=== PATIENT | female | born 1965 | race Hispanic/Latino ===

== ENCOUNTER 2016-09-03 13:32 | Emergency (ER) | payer MEDICAID ==
[2016-09-03 13:32] VITALS: BMI 40.1
[2016-09-03 13:54] VITALS: BP 118/82; PULSE 90; RESP 20; TEMP 97.9; O2SAT 97
[2016-09-03] MEDS ORDERED: Sodium Chloride 0.9% 1,000 ML IV ONE (14:19)
--- NOTE | 2016-09-03 14:23 | C.PDOC ---
History Of Present Illness 51 yr old female with PMHx of diabetes, arthritis and COPD, presents to the ER for SOB and wheezing for a while. Patient states she smokes. Patient reports she has been seen by her PMD, is on antibiotics, steroids and is taking breathing treatments but is still wheezing. Patient states she is only able to walk few feet and feels SOB. Patient denies fever, chills, chest pain, palpitations, nausea, vomiting, abdominal pain, diarrhea, headache, weakness or numbness. Time Seen by Provider: 09/03/16 14:13 Chief Complaint (Nursing): Shortness Of Breath History Per: Patient History/Exam Limitations: no limitations Onset/Duration Of Symptoms: Days (Few) Past Medical History Reviewed: Historical Data, Nursing Documentation, Vital Signs Vital Signs: Last Vital Signs Temp 97.9 F 09/03/16 13:51 Pulse 90 09/03/16 13:51 Resp 20 09/03/16 14:55 BP 118/82 09/03/16 13:51 Pulse Ox 97 09/03/16 16:16 - Medical History PMH: Anxiety, Arthritis, Asthma, Bipolar Disorder, COPD, Diabetes, Diverticulitis, HTN Surgical History: Tonsillectomy - [facility] Procedures INJECT/INFUSE NEC (02/16/15) Family History: States: No Known Family Hx - Social History Hx Tobacco Use: Yes Hx Alcohol Use: No Hx Substance Use: Yes - Immunization History Hx Tetanus Toxoid Vaccination: No Hx Influenza Vaccination: No Hx Pneumococcal Vaccination: No Review Of Systems Except As Marked, All Systems Reviewed And Found Negative. Constitutional: Negative for: Fever, Chills Cardiovascular: Negative for: Chest Pain, Palpitations Respiratory: Positive for: Shortness of Breath, Wheezing Gastrointestinal: Negative for: Nausea, Vomiting, Abdominal Pain, Diarrhea Neurological: Negative for: Weakness, Numbness, Headache Physical Exam - Physical Exam Appears: Well, Non-toxic, No Acute Distress Skin: Warm, Dry, No Rash Head: Atraumatic, Normacephalic Oral Mucosa: Moist Throat: Normal, No Erythema, No Exudate, No Drooling Neck: Normal, Normal ROM, Supple Chest: Symmetrical, No Tenderness Cardiovascular: Rhythm Regular, No Murmur Respiratory: No Rales, Rhonchi, Wheezing (Bilateral) Gastrointestinal/Abdominal: Normal Exam, Soft, No Tenderness, No Guarding, No Rebound Extremity: Normal ROM, No Swelling Neurological/Psych: Oriented x3, Normal Speech, Cerebellar Signs ED Course And Treatment - Laboratory Results Result Diagrams: 09/03/16 15:01 09/03/16 15:01 Lab Interpretation: Abnormal O2 Sat by Pulse Oximetry: 97 Pulse Ox Interpretation: Normal - Other Rad CXR X-Ray: Viewed By Me, Read By Radiologist Interpretation: HISTORY: Shortness of breath. COMPARISON: No prior. TECHNIQUE: Chest PA and lateral. FINDINGS: LUNGS: The lungs are well inflated and clear. PLEURA: No significant pleural effusion identified. No pneumothorax apparent. CARDIOVASCULAR: Normal. OSSEOUS STRUCTURES: No significant abnormalities. VISUALIZED UPPER ABDOMEN: Normal. OTHER FINDINGS: None. IMPRESSION: No active pulmonary disease. Progress Note: Treated with solumedrol 125 mg IV and duoneb x 3. Patient ambulating without difficulty and eating cupcake and candy at bedside. Treated with regular insulin 8 units SQ. patient and advised to follow up with her PMD for further evaluation Reassessment Condition: Improved Medical Decision Making Medical Decision Making: PLAN: * CXR * CBC * Urinalysis * Albuterol IH * Tylenol PO * Solumedrol IVP Disposition Counseled Patient/Family Regarding: Studies Performed, Diagnosis, Need For Followup - Disposition Referrals: [facility] [Outside] [facility] [Outside] Disposition: HOME/ ROUTINE Disposition Time: 16:30 Condition: IMPROVED Additional Instructions: Take medication as directed Return to ED if any increase symptoms Instructions: Asthma (ED), COPD (Chronic Obstructive Pulmonary Disease) (ED), Reactive Airways Disease (ED), Diabetes Mellitus Type 2 in Adults (ED) - POA Present On Arrival: None - Clinical Impression Clinical Impression: Respiratory tract infection, COPD exacerbation, Acute hyperglycemia - PA / OPTIMIZATION CONSULTANT / Resident Statement MD/DO has reviewed & agrees with the documentation as recorded. - Scribe Statement The provider has reviewed the documentation as recorded by the Joelibjimi Lindsey All medical record entries made by the Joelibjimi were at my direction and personally dictated by me. I have reviewed the chart and agree that the record accurately reflects my personal performance of the history, physical exam, medical decision making, and the department course for this patient. I have also personally directed, reviewed, and agree with the discharge instructions and disposition.
[2016-09-03] MEDS ORDERED: Sodium Chloride 0.9% 1,000 ML ONE (14:35)
[2016-09-03] MEDS: Albuterol-Ipratrop 3 mg / 0.5 (3 ml) UD IH SCH ×2 (14:35→14:52)
--- NOTE | 2016-09-03 14:36 | RAD ---
HISTORY: Shortness of breath COMPARISON: No prior. TECHNIQUE: Chest PA and lateral FINDINGS: LUNGS: The lungs are well inflated and clear. PLEURA: No significant pleural effusion identified. No pneumothorax apparent. CARDIOVASCULAR: Normal. OSSEOUS STRUCTURES: No significant abnormalities. VISUALIZED UPPER ABDOMEN: Normal. OTHER FINDINGS: None. IMPRESSION: No active pulmonary disease.
[2016-09-03] MEDS ORDERED: Albuterol-Ipratrop 3 mg / 0.5 (3 ml) UD ONE (14:39)
[2016-09-03 15:05] LABS: BASO # 0.2 K/uL (0.0-0.2); BASO % 1.3 % (0.0-2.0); EOS # 0.2 K/uL (0.0-0.7); EOS % 1.4 % (0.0-4.0); HEMATOCRIT 50.7 % (34.0-47.0); LYMPH # 4.1 K/uL (1.0-4.3); LYMPH % 34.1 % (20.0-40.0); MEAN CELL VOLUME 90.5 fL (81.0-99.0); MEAN CORPUSCULAR HEMOGLOBIN 29.1 pg (27.0-31.0); MEAN CORPUSCULAR HGB CONC 32.1 g/dL (33.0-37.0); MEAN PLATELET VOLUME 8.9 fL (7.2-11.7); MONO # 0.6 K/uL (0.0-0.8); MONO % 4.7 % (0.0-10.0); RED CELL DISTRIBUTION WIDTH 13.4 % (11.5-14.5); WHITE BLOOD COUNT 11.9 K/uL (4.8-10.8)
[2016-09-03 15:11] LABS: CHLORIDE 97 mmol/L (98-107)
[2016-09-03 15:12] LABS: SODIUM 134 mmol/L (132-148)
[2016-09-03 15:15] LABS: ALKALINE PHOSPHATASE 130 U/L (38-126); ALT/SGPT 23 U/L (9-52); AST/SGOT 32 U/L (14-36); BILIRUBIN,TOTAL 0.7 mg/dL (0.2-1.3); BLOOD UREA NITROGEN 16 mg/dL (7-17); CARBON DIOXIDE 22 mmol/L (22-30); GFR AFRICAN-AMERICAN > 60; TOTAL PROTEIN 7.8 g/dL (6.3-8.3)
[2016-09-03 15:19] LABS: POTASSIUM 5.1 mmol/L (3.6-5.2)
[2016-09-03 15:39] LABS: GLUCOSE,RANDOM 488 mg/dL (65-105)
[2016-09-03] MEDS ORDERED: (Novolin R) Insulin Human Regular 100 units/ml vial SC ONE (15:56)
[2016-09-04] MEDS ORDERED: Sodium Chloride 0.9% 1,000 ML ONE (21:37)
[2016-09-04] MEDS ORDERED: Iohexol 240 (50 ml) ONE (22:39)
[2016-09-04] MEDS ORDERED: (Novolin R) Insulin Human Regular 100 units/ml vial ONE (22:41)
[2016-09-04] MEDS ORDERED: Morphine 4 MG/ML VIAL ONE (22:43)
== END 2016-09-03 14:55 | disposition home or self-care (01) ==
LOC: C.ER 13:32
DX: J44.1 Chronic obstructive pulmonary disease with (acute) exacerbation (principal); E11.65 Type 2 diabetes mellitus with hyperglycemia; J98.8 Other specified respiratory disorders; Z72.0 Tobacco use
CPT/HCPCS: 71020; 80053; 85025; 94150; 94640; 96374; 99283; J2930

== ENCOUNTER 2016-09-04 19:58 | Emergency (ER) | payer MEDICAID ==
[2016-09-04 19:58] VITALS: BMI 40.1
[2016-09-04] MEDS ORDERED: Sodium Chloride 0.9% 1,000 ML IV ONE (21:21)
[2016-09-04 21:43] LABS: BASO # 0.2 K/uL (0.0-0.2); BASO % 1.1 % (0.0-2.0); EOS # 0.2 K/uL (0.0-0.7); EOS % 1.3 % (0.0-4.0); HEMATOCRIT 46.5 % (34.0-47.0); LYMPH # 5.2 K/uL (1.0-4.3); LYMPH % 36.3 % (20.0-40.0); MEAN CELL VOLUME 91.5 fL (81.0-99.0); MEAN CORPUSCULAR HEMOGLOBIN 29.5 pg (27.0-31.0); MEAN CORPUSCULAR HGB CONC 32.2 g/dL (33.0-37.0); MEAN PLATELET VOLUME 8.7 fL (7.2-11.7); MONO # 0.6 K/uL (0.0-0.8); MONO % 4.4 % (0.0-10.0); RED CELL DISTRIBUTION WIDTH 13.4 % (11.5-14.5); WHITE BLOOD COUNT 14.3 K/uL (4.8-10.8)
[2016-09-04 22:00] LABS: CHLORIDE 95 mmol/L (98-107)
[2016-09-04 22:01] LABS: POTASSIUM 4.7 mmol/L (3.6-5.2); SODIUM 133 mmol/L (132-148)
[2016-09-04 22:03] LABS: ALB/GLOB RATIO 1.2 (1.0-2.1); ALKALINE PHOSPHATASE 141 U/L (38-126); AST/SGOT 25 U/L (14-36); BILIRUBIN,TOTAL 0.6 mg/dL (0.2-1.3); BLOOD UREA NITROGEN 16 mg/dL (7-17); CARBON DIOXIDE 27 mmol/L (22-30); GFR AFRICAN-AMERICAN > 60; TOTAL PROTEIN 7.2 g/dL (6.3-8.3)
[2016-09-04 22:04] LABS: ALT/SGPT 27 U/L (9-52); CALCIUM 8.6 mg/dl (8.6-10.4); GLUCOSE,RANDOM 529 mg/dL (65-105)
[2016-09-04] MEDS ORDERED: Iohexol 240 (50 ml) PO STA (22:30)
[2016-09-04] MEDS ORDERED: (Novolin R) Insulin Human Regular 100 units/ml vial IV STA (22:32)
[2016-09-05 00:04] LABS: RBC URINE 9 /hpf (0-3); URINE BACTERIA RARE (<OCC); URINE BILIRUBIN NEGATIVE (NEGATIVE); URINE COLOR Straw (YELLOW); URINE GLUCOSE (UA) 3+ mg/dL (Normal); URINE KETONE NEGATIVE (NEGATIVE); URINE LEUKOCYTE ESTERASE NEG Leu/uL (Negative); URINE PROTEIN NEGATIVE (NEGATIVE); URINE UROBILINOGEN NORMAL mg/dL (0.2-1.0); WBC URINE 1 /hpf (0-5)
[2016-09-05 00:05] LABS: URINE BLOOD 1+ (NEGATIVE)
--- NOTE | 2016-09-05 00:37 | C.PDOC ---
Time Seen by Provider: 09/04/16 20:53 Chief Complaint (Nursing): Abdominal Pain History Per: Patient Onset/Duration Of Symptoms: Hrs (today) Current Symptoms Are (Timing): Still Present Severity: Moderate Location Of Pain/Discomfort: Diffuse Radiation Of Pain To:: None Quality Of Discomfort: Unable To Describe, "Pain" Associated Symptoms: Nausea, Vomiting Exacerbating Factors: Food Alleviating Factors: None Last Bowel Movement: Today Additional History Per: Prior Records Last Menstral Period: Menopause Past Medical History Reviewed: Historical Data, Nursing Documentation, Vital Signs Vital Signs: Last Vital Signs Temp 97.7 F 09/04/16 20:37 Pulse 106 H 09/04/16 20:37 Resp 20 09/04/16 20:37 BP 139/72 09/04/16 20:37 Pulse Ox 97 09/05/16 00:37 - Medical History PMH: Anxiety, Arthritis, Asthma, Bipolar Disorder, COPD, Diabetes, Diverticulitis, HTN Surgical History: Tonsillectomy - [facility] Procedures INJECT/INFUSE NEC (02/16/15) Family History: States: Unknown Family Hx - Social History Hx Tobacco Use: Yes Hx Alcohol Use: No Hx Substance Use: Yes - Immunization History Hx Tetanus Toxoid Vaccination: No Hx Influenza Vaccination: No Hx Pneumococcal Vaccination: No Review Of Systems Except As Marked, All Systems Reviewed And Found Negative. Constitutional: Negative for: Fever, Weakness Cardiovascular: Negative for: Chest Pain Respiratory: Negative for: Shortness of Breath Gastrointestinal: Positive for: Abdominal Pain. Negative for: Diarrhea, Melena , Hematochezia, Hematemesis Genitourinary: Negative for: Dysuria Musculoskeletal: Negative for: Neck Pain, Back Pain Neurological: Negative for: Weakness, Numbness, Seizures, Altered Mental Status Physical Exam - Physical Exam Appears: Non-toxic, No Acute Distress Skin: Normal Color, Warm, Dry, No Rash Head: Atraumatic, Normacephalic Eye(s): bilateral: PERRL, EOMI Neck: Normal ROM, Supple Cardiovascular: Rhythm Regular Respiratory: Normal Breath Sounds, No Accessory Muscle Use Gastrointestinal/Abdominal: Soft, Tenderness (nonspecific) Extremity: Normal ROM Neurological/Psych: Oriented x3, Normal Motor, Normal Sensation ED Course And Treatment - Laboratory Results Result Diagrams: 09/04/16 21:41 09/04/16 21:41 Lab Interpretation: Abnormal Interpretation Of Abnormal: Hyperglycemia. O2 Sat by Pulse Oximetry: 97 Pulse Ox Interpretation: Normal Disposition - Disposition Disposition Time: 00:50 Condition: FAIR - Clinical Impression Clinical Impression: Abdominal pain, Uncontrolled diabetes mellitus with hyperglycemia Physician Patient Turnover Patient Signed Over To: Matty Shaver Handoff Comments: to f/up CT abdomen/pelvis and reassess pt.
[2016-09-05 02:47] VITALS: BP 130/75; PULSE 82; RESP 18; TEMP 98.4; O2SAT 98
--- NOTE | 2016-09-05 09:24 | CT ---
PROCEDURE: CT Abdomen and pelvis dated 09/05/2016 HISTORY: abd pain, Vomiting. on Metformin. COMPARISON: Comparison made with prior study dated 07/18/2013 TECHNIQUE: Contiguous axial images of the abdomen and pelvis. Oral contrast was administered. No IV contrast given. Coronal and Sagittal reformats generated. Radiation dose: Total exam DLP = 1117.88 mGy-cm. This CT exam was performed using one or more of the following dose reduction techniques: Automated exposure control, adjustment of the mA and/or kV according to patient size, and/or use of iterative reconstruction technique. FINDINGS: LOWER THORAX: No basilar infiltrate, effusion or pneumothorax Tiny hiatal hernia. LIVER: The liver is enlarged measuring nearly 24 cm in CC dimension. No obvious hepatic mass collection or calcification. GALLBLADDER AND BILE DUCTS: . Gallbladder is physiologically distended. Re- demonstrated are multiple intraluminal gallbladder calculi. PANCREAS: The pancreas is slightly atrophic and fatty replaced. No obvious pancreatic mass collection or calcification. No significant pancreatic ductal dilatation. SPLEEN: Unremarkable. No splenomegaly. ADRENALS: No adrenal lesions. KIDNEYS AND URETERS: Kidneys exhibit symmetric size. No evidence of nephrolithiasis or hydronephrosis. BLADDER: Urinary bladder is incompletely distended which presumably accounts for thick-walled appearance. Possibility of a cystitis not excluded. REPRODUCTIVE: The uterus and adnexal structures appear unremarkable. . APPENDIX: Normal-appearing appendix best seen on coronal series 601 image number [id number]. No periappendiceal inflammatory changes. BOWEL: Evaluation of the bowel is somewhat limited due to incomplete opacification. The stomach is underdistended which presumably accounts slight thick-walled appearance. Visualized loops of small bowel exhibit normal contour and caliber. No evidence of acute mechanical small bowel obstruction. Stool and air seen throughout the large bowel. Few scattered colonic diverticula are present. No radiographic evidence of diverticulitis. No significant mural wall thickening. PERITONEUM: Unremarkable. No fluid collection. No free air. Tiny fat containing umbilical hernia. Tiny fat containing bilateral inguinal hernias left slightly larger than right. LYMPH NODES: Unremarkable. No enlarged lymph nodes. VASCULATURE: Unremarkable. No aortic aneurysm. BONES: Minor multilevel degenerative spondylosis of the lower thoracic and lumbar spine. OTHER FINDINGS: None. IMPRESSION: Findings consistent with cholelithiasis. No evidence suggest acute cholecystitis. Hepatomegaly. Diverticulosis.
== END 2016-09-05 02:47 | disposition home or self-care (01) ==
LOC: C.ER 19:58
DX: K80.20 Calculus of gallbladder without cholecystitis without obstruction (principal); E11.65 Type 2 diabetes mellitus with hyperglycemia
CPT/HCPCS: 74176; 80053; 81001; 82948; 83690; 85025; 96361; 96374; 96375; 99285; J2270; J2765; J7040; Q9966

== ENCOUNTER 2016-09-08 04:28 | Emergency (ER) | payer MEDICAID ==
[2016-09-08 04:29] VITALS: BMI 40.1
[2016-09-08 05:06] VITALS: BP 116/75; PULSE 94; RESP 18; TEMP 98; O2SAT 92
[2016-09-08] MEDS ORDERED: Alum-Mag Hydrox-Simethicone Susp (30 mL) PO STA (05:25)
--- NOTE | 2016-09-08 05:32 | C.PDOC ---
History Of Present Illness 51 year old female presents to the ED with complaints of heart burn, nausea,and vomiting after having a large Easter dinner. Patient was seen for similar complaints on 09/04/16 and had labs and CT scans performed and gallstones were found. She states she has not had any large meals in between her last visit and last night. Patient denies diarrhea, fever, constipation, and any urinary symptoms. Time Seen by Provider: 09/08/16 05:14 Chief Complaint (Nursing): GI Problem History Per: Patient History/Exam Limitations: no limitations Onset/Duration Of Symptoms: Hrs Current Symptoms Are (Timing): Still Present Associated Symptoms: Nausea, Vomiting. denies: Fever, Diarrhea, Constipation, Urinary Symptoms Past Medical History Reviewed: Historical Data, Nursing Documentation, Vital Signs Vital Signs: Last Vital Signs Temp 98.0 F 09/08/16 05:06 Pulse 94 H 09/08/16 05:06 Resp 18 09/08/16 05:06 BP 116/75 09/08/16 05:06 Pulse Ox 92 L 09/08/16 06:50 - Medical History PMH: Anxiety, Arthritis, Asthma, Bipolar Disorder, COPD, Diabetes, Diverticulitis, HTN Surgical History: Tonsillectomy - [facility] Procedures INJECT/INFUSE NEC (02/16/15) Family History: States: Unknown Family Hx - Social History Hx Tobacco Use: Yes Hx Alcohol Use: No Hx Substance Use: Yes - Immunization History Hx Tetanus Toxoid Vaccination: No Hx Influenza Vaccination: Yes Hx Pneumococcal Vaccination: No Review Of Systems Constitutional: Negative for: Fever, Chills, Sweats Cardiovascular: Positive for: Other (heart burn ) Gastrointestinal: Positive for: Nausea, Vomiting. Negative for: Abdominal Pain , Diarrhea Physical Exam - Physical Exam Appears: Non-toxic, No Acute Distress Skin: Warm, Dry Head: Normacephalic Eye(s): bilateral: Normal Inspection, PERRL Chest: Symmetrical Cardiovascular: Rhythm Regular Respiratory: Decreased Breath Sounds, No Accessory Muscle Use, No Wheezing Gastrointestinal/Abdominal: Soft, Tenderness (epigastric tenderness in right and left upper quardrant ), No Distention, No Guarding, No Rebound Back: No CVA Tenderness Extremity: Normal ROM Neurological/Psych: Oriented x3 Gait: Steady ED Course And Treatment O2 Sat by Pulse Oximetry: 92 Progress Note: Pt reports some pain improvement after meds and tolerated PO fluids. Pt will follow up with PMD and advised of better diet control. Return precautions were given Reevaluation Time: 06:48 Reassessment Condition: Improved Disposition Counseled Patient/Family Regarding: Diagnosis, Need For Followup, Rx Given - Disposition Disposition: HOME/ ROUTINE Disposition Time: 06:51 Condition: STABLE Additional Instructions: Continue previously prescribed meds Follow up with your doctor' Return to ER if worse Instructions: Chronic Indigestion (ED) - Clinical Impression Clinical Impression: Dyspepsia, Abdominal pain - Scribe Statement The provider has reviewed the documentation as recorded by the Joelibjimi Bashir All medical record entries made by the Tutu were at my direction and personally dictated by me. I have reviewed the chart and agree that the record accurately reflects my personal performance of the history, physical exam, medical decision making, and the department course for this patient. I have also personally directed, reviewed, and agree with the discharge instructions and disposition.
[2016-09-08] MEDS ORDERED: Alum-Mag Hydrox-Simethicone Susp (30 mL) ONE (05:34)
== END 2016-09-08 06:56 | disposition home or self-care (01) ==
LOC: C.ER 04:28
DX: R10.13 Epigastric pain (principal)
CPT/HCPCS: 82948; 96372; 99283; J1885

== ENCOUNTER 2016-10-17 20:53 | Emergency (ER) | payer MEDICAID ==
[2016-10-17 20:54] VITALS: BMI 40.1
[2016-10-17 21:05] VITALS: BP 131/86; PULSE 105; RESP 20; TEMP 97.9; O2SAT 100
[2016-10-17] MEDS ORDERED: Oxycodone/Acetaminophen 5/325 mg Tab PO STA ×2 (21:06→21:37)
[2016-10-17] MEDS ORDERED: Oxycodone/Acetaminophen 5/325 mg Tab ONE ×2 (21:11→21:41)
--- NOTE | 2016-10-17 21:12 | C.PDOC ---
History Of Present Illness 51 yo female come in for evaluation of Right wrist and lower back pain developed since 7:30 PM after sustained mechanical fall. Pt reports, tripped outside and fell down, trying to break the fall with Right hand. Pt reports, pain is the worse over Right wrist, localized and worse with movement. Otherwise , pt denies head injury, LOC, syncope, dizziness, visual changes, focal deficits , neck pain, CP, SOB, dyspnea, abd. pain, N/V, saddle anesthesia, denies weakness, sensory or vascular deficits to B/L UEs and LE. Ambulate, in severe pain. Time Seen by Provider: 10/17/16 20:58 Chief Complaint (Nursing): Finger,Hand,&Wrist History Per: Patient Onset/Duration Of Symptoms: Sudden Onset Past Medical History Reviewed: Historical Data, Nursing Documentation, Vital Signs Vital Signs: Last Vital Signs Temp 97.9 F 10/17/16 21:02 Pulse 105 H 10/17/16 21:02 Resp 20 10/17/16 21:02 BP 131/86 10/17/16 21:02 Pulse Ox 100 10/17/16 21:15 - Medical History PMH: Anxiety, Arthritis, Asthma, Bipolar Disorder, COPD, Diabetes, Diverticulitis, HTN Denies: Chronic Kidney Disease Surgical History: Tonsillectomy - [facility] Procedures INJECT/INFUSE NEC (02/16/15) Family History: States: Unknown Family Hx - Social History Hx Tobacco Use: Yes Hx Alcohol Use: No Hx Substance Use: Yes - Immunization History Hx Tetanus Toxoid Vaccination: No Hx Influenza Vaccination: Yes Hx Pneumococcal Vaccination: No Review Of Systems Except As Marked, All Systems Reviewed And Found Negative. Eyes: Negative for: Vision Change ENT: Negative for: Ear Discharge, Nose Discharge Cardiovascular: Negative for: Chest Pain, Palpitations, Light Headedness Respiratory: Negative for: Shortness of Breath Gastrointestinal: Negative for: Nausea, Vomiting Genitourinary: Negative for: Incontinence Musculoskeletal: Positive for: Back Pain, Hand Pain (Right wrist). Negative for : Neck Pain Skin: Negative for: Bruising Neurological: Negative for: Weakness, Numbness, Altered Mental Status, Headache , Dizziness Physical Exam - Physical Exam Appears: Well, Non-toxic, No Acute Distress Skin: Normal Color, Warm, Dry Head: Atraumatic, Normacephalic Eye(s): bilateral: PERRL Ear(s): Bilateral: Normal Nose: No Epistaxis, No Deformity, No Tenderness Oral Mucosa: Moist, No Drooling, No Trismus Tongue: Normal Appearing Lips: Normal Appearing Throat: Normal Neck: No Midline Cervical Tenderness, No Paracervical Tenderness, No Step Off Deformity, Supple Chest: Symmetrical, No Deformity, No Tenderness, No Ecchymosis, No Subcutaneous Emphysema Cardiovascular: Rhythm Regular Respiratory: No Decreased Breath Sounds, No Accessory Muscle Use, No Stridor, No Wheezing Gastrointestinal/Abdominal: Soft, No Tenderness Back: No CVA Tenderness, No Vertebral Tenderness, Paraspinal Tenderness (mild Left lumbar paraspinal tenderness.) Extremity: No Normal ROM (of Right wrist due to pain. Remainder exam is normal with FAROM of B/L LEs and LUE.), Tenderness (diffuse Right wrist tenderness with mild palpable deformity. No neurovascular deficits distall to injury. No skin changes.), Capillary Refill (less than 2sec to Right hand) Neurological/Psych: Oriented x3, Normal Speech, Normal Motor, Normal Sensation, Normal Reflexes ED Course And Treatment O2 Sat by Pulse Oximetry: 100 Pulse Ox Interpretation: Normal - Other Rad Right wrist X-Ray: Interpreted by Me, Viewed By Me Interpretation: (+)angulated distal radial fx pelvis w/left hip X-Ray: Interpreted by Me, Viewed By Me Interpretation: (-) acute fx or dislocation L-spine xray X-Ray: Interpreted by Me, Viewed By Me Interpretation: (-) acute fx or sublux Progress Note: On re-evaluation, pt is afebrile, hemodynamicaly stable. Non- toxic. AMbulatory in Ed with stable gait. head: AT/NC. neck: (-) midline tenderness. back: (-) midline tenderness. RUE: exam c/w wrist contusion, mild deformity noted, no neurovascular deficits. neurologicaly intact. xray review and c/w Right distal radial fx with mild angulation. Splint/sling applied. Pt reports, " usually takes percocet 10 for pain". Analgesics given. case discussed with [id number] and splint with outpt fu recommend at this time. Pt advised and ref. to f/u with Ortho in 2-3 days for re-eavl. return if any new changes. Pt was provided with analgesics- percocet for acute pain secondary to acute Right distal radial fx, supply for less then 5 days. Orthopedic Time Performed: 21:39 Time Out: Side verified, Site verified, Patient ID confirmed Procedure: Splint Other:: Sugar tong Location: Right, Wrist Consent obtained: Verbal Performed by: Mid-level Provider Diagnosis: Fracture Type: Closed, Displaced Location: Right, Distal Bone: Radius Disposition Counseled Patient/Family Regarding: Studies Performed, Diagnosis, Need For Followup, Rx Given - Disposition Referrals: Enzo Nye MD [Staff Provider] - [facility] [Outside] [facility] [place] [Outside] Disposition: HOME/ ROUTINE Disposition Time: 21:40 Condition: STABLE Additional Instructions: Splint, sling Take pain medication as prescribed Follow up with Orthopedist in 2-3 days for re-evaluation. Return if any worsening or new changes. Prescriptions: Acetaminophen/Oxycodone Hydr [Percocet 10/325 mg Tab] 1 tab PO Q6H #10 tab Instructions: Wrist Fracture in Adults (ED), Back Pain (ED) - Clinical Impression Clinical Impression: Radial fracture, Back contusion
--- NOTE | 2016-10-18 12:21 | RAD ---
PROCEDURE: Right Wrist Radiographs. HISTORY: injury COMPARISON: None. FINDINGS: BONES: Impacted fracture distal right radius with extension to the articular surface. Ventral angulation of major fracture fragment. JOINTS: Normal. No dislocation. SOFT TISSUES: Soft tissue swelling attests to the acuity of the fracture. OTHER FINDINGS: None. IMPRESSION: Acute distal radial fracture. Concordant results with the preliminary interpretation rendered by the emergency department physician procedure.
--- NOTE | 2016-10-18 12:22 | RAD ---
PROCEDURE: Left Hip X-ray Radiographs. HISTORY: injury COMPARISON: None. FINDINGS: BONES: Normal. No fracture. JOINTS: Normal. SOFT TISSUES: Normal. OTHER FINDINGS: None. IMPRESSION: No acute findings related to/accounting for the clinical presentation. Concordant results with the preliminary interpretation rendered by the emergency department physician procedure.
--- NOTE | 2016-10-18 12:22 | RAD ---
PROCEDURE: Radiographs of the Lumbar Spine. HISTORY: injury COMPARISON: No prior. FINDINGS: BONES: Normal alignment. No listhesis. No fracture. DISC SPACES: Unremarkable. OTHER FINDINGS: None. IMPRESSION: No significant or acute findings to account for/ related to the clinical presentation. Concordant results with the preliminary interpretation rendered by the emergency department physician procedure.
== END 2016-10-17 21:53 | disposition home or self-care (01) ==
LOC: C.ER 20:53
DX: S52.501A Unspecified fracture of the lower end of right radius, initial encounter for closed fracture (principal); S30.0XXA Contusion of lower back and pelvis, initial encounter; W01.0XXA Fall on same level from slipping, tripping and stumbling without subsequent striking against object, initial encounter; Y93.9 Activity, unspecified; Y92.410 Unspecified street and highway as the place of occurrence of the external cause

== ENCOUNTER 2016-10-19 03:40 | Emergency (ER) | payer MEDICAID ==
[2016-10-19 03:40] VITALS: BMI 40.1
[2016-10-19 03:55] VITALS: BP 140/98; PULSE 97; RESP 20; TEMP 97.9; O2SAT 95
--- NOTE | 2016-10-19 04:15 | C.PDOC ---
History Of Present Illness <YaneBe L - Last Filed: 10/19/16 06:17> <Courtney Smith - Last Filed: 12/25/16 02:57> 51 year old female presents to the ED with complaints of pain in left wrist. Patient states she fell two days ago and fractured her left wrist and was seen in the ED an a splint was applied. She notes she is taking the prescribed percocets with little relief and has so far taken 10 percocets. Patient denies any vomiting, new trauma, or other complaints at this time. (Be Che) History Per: Patient History/Exam Limitations: no limitations Onset/Duration Of Symptoms: Days Current Symptoms Are (Timing): Still Present Quality: "Pain" Recent travel outside of the [place]: No <YaneBe L - Last Filed: 10/19/16 06:17> <Courtney Smith - Last Filed: 12/25/16 02:57> Time Seen by Provider: 10/19/16 04:04 Chief Complaint (Nursing): Upper Extremity Problem/Injury Past Medical History Reviewed: Historical Data, Nursing Documentation, Vital Signs Family History: States: No Known Family Hx <YaneBe L - Last Filed: 10/19/16 06:17> - Medical History PMH: Anxiety, Arthritis, Asthma, Bipolar Disorder, COPD, Diabetes, Diverticulitis, HTN Denies: Chronic Kidney Disease Surgical History: Tonsillectomy Family History: States: Unknown Family Hx - Social History Hx Tobacco Use: Yes Hx Alcohol Use: No Hx Substance Use: Yes - Immunization History Hx Tetanus Toxoid Vaccination: No Hx Influenza Vaccination: Yes Hx Pneumococcal Vaccination: No <Courtney Smith - Last Filed: 12/25/16 02:57> Vital Signs: Last Vital Signs Temp 97.9 F 10/19/16 03:51 Pulse 97 H 10/19/16 03:51 Resp 20 10/19/16 03:51 BP 140/98 H 10/19/16 03:51 Pulse Ox 95 12/25/16 02:57 - [facility] Procedures INJECT/INFUSE NEC (02/16/15) Review Of Systems Constitutional: Negative for: Fever, Chills, Sweats Cardiovascular: Negative for: Chest Pain, Palpitations Respiratory: Negative for: Cough, Shortness of Breath Gastrointestinal: Negative for: Nausea, Vomiting, Abdominal Pain, Diarrhea Musculoskeletal: Positive for: Hand Pain (left wrist pain) Neurological: Negative for: Weakness, Numbness <Be Che - Last Filed: 10/19/16 06:17> Physical Exam - Physical Exam Appears: Non-toxic, No Acute Distress Skin: Warm, Dry Head: Atraumatic Oral Mucosa: Moist Neck: Supple Chest: Symmetrical, No Deformity Cardiovascular: Rhythm Regular Respiratory: No Rales, No Rhonchi, No Stridor, No Wheezing Gastrointestinal/Abdominal: Soft, No Tenderness, No Distention, No Guarding, No Rebound Extremity: Normal ROM, No Deformity, No Swelling, Other (Sugar-tong splint in place on left arm, fingers are warm ) Pulses: Left Brachial: Normal, Right Brachial: Normal, Left Radial: Normal, Right Radial: Normal Neurological/Psych: Oriented x3 <Be Che - Last Filed: 10/19/16 06:17> ED Course And Treatment O2 Sat by Pulse Oximetry: 95 <Courtney Smith - Last Filed: 12/25/16 02:57> Disposition <Be Che - Last Filed: 10/19/16 06:17> - Disposition Disposition Time: 05:00 <Courtney Smith - Last Filed: 12/25/16 02:57> - Disposition Referrals: [facility] [Outside] Disposition: HOME/ ROUTINE Condition: STABLE Additional Instructions: Follow up as arranged Instructions: Wrist Fracture in Adults (ED) - Clinical Impression Clinical Impression: Fracture of bone - Scribe Statement The provider has reviewed the documentation as recorded by the Scribe <Be Che - Last Filed: 10/19/16 06:17> <Courtney Smith - Last Filed: 12/25/16 02:57> - Scribe Statement Michelle Bashir All medical record entries made by the Scribe were at my direction and personally dictated by me. I have reviewed the chart and agree that the record accurately reflects my personal performance of the history, physical exam, medical decision making, and the department course for this patient. I have also personally directed, reviewed, and agree with the discharge instructions and disposition. (Be Che)
== END 2016-10-19 04:49 | disposition home or self-care (01) ==
LOC: C.ER 03:40
DX: S62.102A Fracture of unspecified carpal bone, left wrist, initial encounter for closed fracture (principal); W19.XXXA Unspecified fall, initial encounter; Y93.89 Activity, other specified; Y92.89 Other specified places as the place of occurrence of the external cause
CPT/HCPCS: 96372; 99283; J1885

== ENCOUNTER 2016-11-15 10:10 | Emergency (ER) | payer MEDICAID ==
[2016-11-15 10:10] VITALS: BMI 40.1
[2016-11-15] MEDS ORDERED: Sodium Chloride 0.9% 1,000 ML IV ONE (10:28)
[2016-11-15] MEDS ORDERED: ceFAZolin IV 1 gm in Dextrose 1 GM/50 ML BAG IVPB ONE (10:30)
--- NOTE | 2016-11-15 10:39 | C.PDOC ---
History Of Present Illness Patient is a 51 year old female who presents to the ER with a complaint of redness to the right lower leg. Patient was seen in [facility] 2 weeks ago for the same complaints. At the time, patient had a doppler study done and was sent home with antibiotics. Patient notes her condition improved with the treatment; however, the symptoms have now returned. Patient has a history of DVT, diabetes, arthritis and drug abuse. Denies fever, chills or recent injury. Time Seen by Provider: 11/15/16 10:15 Chief Complaint (Nursing): Abnormal Skin Integrity History Per: Patient History/Exam Limitations: no limitations Onset/Duration Of Symptoms: Days Current Symptoms Are (Timing): Still Present Location Of Injury: Right: Leg (redness) Quality Of Symptoms: Painful Recent travel outside of the [place]: No Past Medical History Reviewed: Historical Data, Nursing Documentation, Vital Signs Vital Signs: Last Vital Signs Temp 98 F 11/15/16 13:21 Pulse 70 11/15/16 13:21 Resp 18 11/15/16 13:21 BP 135/85 11/15/16 13:21 Pulse Ox 97 11/15/16 13:21 - Medical History PMH: Anxiety, Arthritis, Asthma, Bipolar Disorder, COPD, Diabetes, Diverticulitis, HTN, Chronic Pain Surgical History: Tonsillectomy - [facility] Procedures INJECT/INFUSE NEC (02/16/15) Family History: States: Unknown Family Hx - Social History Hx Tobacco Use: Yes Hx Alcohol Use: No Hx Substance Use: No (denies 11/15) - Immunization History Hx Tetanus Toxoid Vaccination: No Hx Influenza Vaccination: Yes Hx Pneumococcal Vaccination: No Review Of Systems Except As Marked, All Systems Reviewed And Found Negative. Constitutional: Negative for: Fever, Chills Skin: Positive for: Other (Redness to the right lower leg) Physical Exam - Physical Exam Appears: Non-toxic, No Acute Distress Skin: Warm, Dry, Other (Erythema to right lower leg, warm to touch) Head: Atraumatic, Normacephalic Oral Mucosa: Moist Chest: Symmetrical, No Tenderness Cardiovascular: Rhythm Regular, No Murmur Respiratory: Normal Breath Sounds, No Rales, No Rhonchi, No Wheezing Extremity: Normal ROM (x4), Tenderness (Right lower leg), Pedal Edema Pulses: Left Dorsalis Pedis: Normal, Right Dorsalis Pedis: Normal Neurological/Psych: Oriented x3, Normal Speech, Normal Cognition ED Course And Treatment - Laboratory Results Result Diagrams: 11/15/16 10:51 11/15/16 10:51 Lab Interpretation: Normal O2 Sat by Pulse Oximetry: 99 (Room air) Pulse Ox Interpretation: Normal Progress Note: Blood work, urinalysis and venous duplex scan ordered. IV fluids administered. Doppler (-) DVT. Treated with ancef 1 gm and Bactrim DS. Treated with motrin 600 mg PO. on re-evaluation no fever. Doppler US (-) DVT Reassessment Condition: Improved Disposition Counseled Patient/Family Regarding: Studies Performed, Diagnosis, Need For Followup, Rx Given - Disposition Referrals: [facility] [Outside] Disposition: HOME/ ROUTINE Disposition Time: 12:50 Condition: STABLE Additional Instructions: Return to ED if any increase symptoms Prescriptions: Cephalexin [cephalexin] 500 mg PO Q6 #28 cap Sulfamethoxazole/Trimethoprim [Bactrim DS 800 mg-160 mg] 1 tab PO BID #14 tab Instructions: Cellulitis (ED) - POA Present On Arrival: None - Clinical Impression Clinical Impression: Cellulitis, Diabetes - Scribe Statement The provider has reviewed the documentation as recorded by the Scribjimi Landin All medical record entries made by the Scribe were at my direction and personally dictated by me. I have reviewed the chart and agree that the record accurately reflects my personal performance of the history, physical exam, medical decision making, and the department course for this patient. I have also personally directed, reviewed, and agree with the discharge instructions and disposition.
[2016-11-15 10:54] LABS: BASO # 0.1 K/uL (0.0-0.2); BASO % 0.9 % (0.0-2.0); EOS # 0.3 K/uL (0.0-0.7); HEMATOCRIT 42.8 % (34.0-47.0); LYMPH # 2.7 K/uL (1.0-4.3); LYMPH % 31.2 % (20.0-40.0); MEAN CELL VOLUME 90.1 fL (81.0-99.0); MEAN CORPUSCULAR HEMOGLOBIN 29.2 pg (27.0-31.0); MEAN CORPUSCULAR HGB CONC 32.4 g/dL (33.0-37.0); MEAN PLATELET VOLUME 8.4 fL (7.2-11.7); MONO # 0.6 K/uL (0.0-0.8); MONO % 7.3 % (0.0-10.0); RED CELL DISTRIBUTION WIDTH 13.6 % (11.5-14.5); WHITE BLOOD COUNT 8.6 K/uL (4.8-10.8)
[2016-11-15] MEDS ORDERED: ceFAZolin 1 gm FROZEN Premix 1 GM/50 ML ML IVPB ONE (11:00)
[2016-11-15 11:02] LABS: CHLORIDE 104 mmol/L (98-107); POTASSIUM 4.6 mmol/L (3.6-5.2); SODIUM 137 mmol/L (132-148)
[2016-11-15 11:04] LABS: BILIRUBIN,TOTAL 0.9 mg/dL (0.2-1.3); GFR AFRICAN-AMERICAN > 60
[2016-11-15 11:05] LABS: ALKALINE PHOSPHATASE 112 U/L (38-126); ALT/SGPT 19 U/L (9-52); AST/SGOT 26 U/L (14-36); BLOOD UREA NITROGEN 13 mg/dL (7-17); CARBON DIOXIDE 25 mmol/L (22-30); GLUCOSE,RANDOM 306 mg/dL (65-105); TOTAL PROTEIN 6.9 g/dL (6.3-8.3)
[2016-11-15 11:06] LABS: CALCIUM 8.5 mg/dl (8.6-10.4)
[2016-11-15 11:36] LABS: RBC URINE 3 /hpf (0-3); URINE BACTERIA MOD (<OCC); URINE BILIRUBIN NEGATIVE (NEGATIVE); URINE BLOOD 3+ (NEGATIVE); URINE COLOR Yellow (YELLOW); URINE GLUCOSE (UA) 3+ mg/dL (Normal); URINE KETONE NEGATIVE (NEGATIVE); URINE LEUKOCYTE ESTERASE NEG Leu/uL (Negative); URINE PROTEIN 1+ mg/dL (NEGATIVE); URINE UROBILINOGEN NORMAL mg/dL (0.2-1.0); WBC URINE 3 /hpf (0-5)
[2016-11-15] MEDS ORDERED: Tmp-Smz 800 mg-160 mg DS Tab PO SCH (12:00)
[2016-11-15] MEDS ORDERED: Sodium Chloride 0.9% 1,000 ML ONE (12:23)
[2016-11-15] MEDS ORDERED: Tmp-Smz 800 mg-160 mg DS Tab ONE (12:23)
[2016-11-15 13:21] VITALS: BP 135/85; PULSE 70; RESP 18; TEMP 98
[2016-11-15 18:26] VITALS: O2SAT 99
--- NOTE | 2016-11-16 13:00 | VASCLAB ---
PROCEDURE: Lower Extremity Venous Duplex Exam. HISTORY: edema PRIORS: 06/12/2013 TECHNIQUE: Bilateral common femoral, femoral, popliteal and posterior tibial, peroneal and great saphenous veins were evaluated. Flow was assessed with color Doppler, compressibility, assessment of phasic flow and augmentation response. Report prepared by ISAIAH Hansen FINDINGS: RIGHT: 1. Common Femoral Vein: 1.1. Compressibility - Fully compressible: Thrombus - None : Flow - Phasic: Augmentation -Normal: Reflux - None. 2. Femoral Vein: 2.1. Compressibility - Fully compressible: Thrombus - None : Flow - Phasic: Augmentation -Normal: Reflux - None. 3. Popliteal Vein: 3.1. Compressibility - Fully compressible: Thrombus - None : Flow - Phasic: Augmentation -Normal: Reflux - None. 4. Posterior Tibial Vein: 4.1. Compressibility - Fully compressible: Thrombus - None: Flow - Phasic: Augmentation -Normal: Reflux - None. 5. Peroneal Vein: 5.1. Compressibility - Fully compressible: Thrombus - None: Flow - Phasic: Augmentation -Normal: Reflux - None. 6. Great Saphenous Vein: 6.1. Compressibility - Fully compressible: Thrombus - None: Flow - Phasic: Augmentation - Normal: Reflux - None. LEFT: 1. Common Femoral Vein: 1.1. Compressibility - Fully compressible: Thrombus - None: Flow - Phasic: Augmentation -Normal: Reflux - None. 2. Femoral Vein: 2.1. Compressibility - Fully compressible: Thrombus - None: Flow - Phasic: Augmentation -Normal: Reflux - None. 3. Popliteal Vein: 3.1. Compressibility - Fully compressible: Thrombus - None : Flow - Phasic: Augmentation -Normal: Reflux - None. 4. Posterior Tibial Vein: 4.1. Compressibility - Fully compressible: Thrombus - None: Flow - Phasic: Augmentation -Normal: Reflux - None. 5. Peroneal Vein: 5.1. Compressibility - Fully compressible: Thrombus - None: Flow - Phasic: Augmentation -Normal: Reflux - None. 6. Great Saphenous Vein: 6.1. Compressibility - Fully compressible: Thrombus - None: Flow - Phasic: Augmentation - Normal: Reflux - None. OTHER FINDINGS: Right: None significant. Left: None significant. IMPRESSION: Right: No evidence of deep or superficial vein thrombosis of the right lower extremity. Normal valve function noted of the right side. Left: No evidence of deep or superficial vein thrombosis of the left lower extremity. Normal valve function noted of the left side.
== END 2016-11-15 13:45 | disposition home or self-care (01) ==
LOC: C.ER 10:10
DX: L03.115 Cellulitis of right lower limb (principal); E11.9 Type 2 diabetes mellitus without complications; I10 Essential (primary) hypertension; Z72.0 Tobacco use
CPT/HCPCS: 80053; 81001; 85025; 93970; 96361; 96365; 99284; J0690; J7040

== ENCOUNTER 2018-07-09 14:15 | Emergency (ER) | payer MEDICAID ==
[2018-07-09 14:23] VITALS: BP 133/73
[2018-07-09 14:24] VITALS: BMI 37.3
--- NOTE | 2018-07-09 15:06 | C.PDOC ---
History Of Present Illness 53yo female with history of substance abuse, diabetes, COPD, non-compliant with medications, comes to ER with complaints of pain to the dorsum of her left foot. Patient states she was seen in an ER 2 weeks ago due to glass in her foot; she reports improvement after treatment but states the swelling has now gotten worse. She denies any new trauma or injury, numbness or weakness. No additional complaints. PMD: Dr. Quiñones Time Seen by Provider: 07/09/18 14:30 Chief Complaint (Nursing): Lower Extremity Problem/Injury History Per: Patient History/Exam Limitations: no limitations Onset/Duration Of Symptoms: Days Current Symptoms Are (Timing): Still Present Past Medical History Reviewed: Historical Data, Nursing Documentation, Vital Signs Vital Signs: Last Vital Signs Temp 98.4 F 07/09/18 14:22 Pulse 95 H 07/09/18 14:22 Resp 20 07/09/18 14:22 BP 133/73 07/09/18 14:22 Pulse Ox 97 07/09/18 14:22 - Medical History PMH: Anxiety, Arthritis, Asthma, Bipolar Disorder, COPD, Diabetes, Diverticulitis, HTN, Chronic Pain Denies: Chronic Kidney Disease Surgical History: Cholecystectomy, Tonsillectomy - [facility] Procedures INJECT/INFUSE NEC (02/16/15) Family History: States: Unknown Family Hx - Social History Hx Tobacco Use: Yes Hx Alcohol Use: Yes Hx Substance Use: No (denies 11/15) - Immunization History Hx Tetanus Toxoid Vaccination: No Hx Influenza Vaccination: No Hx Pneumococcal Vaccination: No Review Of Systems Constitutional: Negative for: Fever, Chills Musculoskeletal: Positive for: Foot Pain (left foot pain adn swelling) Neurological: Negative for: Weakness, Numbness Physical Exam - Physical Exam Appears: Non-toxic, No Acute Distress Skin: Normal Color Eye(s): bilateral: Normal Inspection Extremity: No Calf Tenderness, Capillary Refill (< 2 seconds), No Deformity, Other (extensive tinea pedis with toe-nail thickening and discoloration; left foot dorsal surface is swollen, exquisitely tender, warm with mild erythema) Pulses: Left Dorsalis Pedis: Normal, Right Dorsalis Pedis: Normal Neurological/Psych: Oriented x3, Normal Speech, Normal Cognition ED Course And Treatment - Laboratory Results Result Diagrams: 07/09/18 15:03 07/09/18 15:03 O2 Sat by Pulse Oximetry: 97 (RA) Pulse Ox Interpretation: Normal Medical Decision Making Medical Decision Makinyo female with tinea pedis and left foot pain Plan: -- Labs -- Toradol 30mg IV 1705 pt seen by podiatry., xray obtained and fx noted to 3rd metatarsal head. Buenrostro dressing applied to left foot along with orthopedic shoe by podiatry resident. will d/c with pain meds for gout as well, and pt to f/u in pod clinic next week. Disposition Counseled Patient/Family Regarding: Studies Performed, Diagnosis, Need For Followup, Rx Given - Disposition Referrals: [facility] [Outside] Disposition: HOME/ ROUTINE Disposition Time: 17:15 Condition: GOOD Additional Instructions: Follow up podiatry clinic on Thursday Keep foot in dressing and wear shoe for comfort. Tylenol and Motrrin for pain. Keep foot elevated when possible. Prescriptions: Acetaminophen [Tylenol 325mg tab] 650 mg PO Q4 #50 tab Colchicine 0.6 mg PO Q2 #9 tablet Ibuprofen [Motrin] 600 mg PO TID #30 tab Instructions: Gout (DC), Foot Fracture (DC) Forms: [employer] ([place]ani), General Discharge Instructions - Clinical Impression Clinical Impression: Fracture of metatarsal of left foot, closed, Gouty arthritis of left foot - PA / REGULATOR ASSEMBLER / Resident Statement MD/DO has reviewed & agrees with the documentation as recorded. - Scribe Statement The provider has reviewed the documentation as recorded by the Tutu Irving Provider Attestation: All medical record entries made by the Tutu were at my direction and personally dictated by me. I have reviewed the chart and agree that the record accurately reflects my personal performance of the history, physical exam, medical decision making, and the department course for this patient. I have also personally directed, reviewed, and agree with the discharge instructions and disposition.
[2018-07-09 15:12] LABS: BASO % 0.2 % (0.0-2.0); EOS # 0.1 K/uL (0.0-0.7); EOS % 1.5 % (0.0-4.0); HEMOGLOBIN 13.4 g/dL (11.0-16.0); LYMPH # 2.3 K/uL (1.0-4.3); LYMPH % 25.1 % (20.0-40.0); MEAN CORPUSCULAR HEMOGLOBIN 29.9 pg (27.0-31.0); MEAN CORPUSCULAR HGB CONC 32.3 g/dL (33.0-37.0); MEAN PLATELET VOLUME 7.9 fL (7.2-11.7); MONO # 0.5 K/uL (0.0-0.8); MONO % 5.6 % (0.0-10.0); NEUT # 6.1 K/uL (1.8-7.0); NEUT % 67.6 % (50.0-75.0); RBC 4.48 Mil/uL (3.80-5.20); RED CELL DISTRIBUTION WIDTH 13.8 % (11.5-14.5); WHITE BLOOD COUNT 9.1 K/uL (4.8-10.8)
[2018-07-09 15:22] LABS: MEAN CELL VOLUME 92.6 fL (81.0-99.0)
[2018-07-09 15:24] LABS: ALB/GLOB RATIO 1.3 (1.0-2.1); ALBUMIN 4.1 g/dL (3.5-5.0); ALT/SGPT 29 U/L (9-52); AST/SGOT 20 U/L (14-36); BLOOD UREA NITROGEN 15 mg/dL (7-17); CALCIUM 8.4 mg/dl (8.6-10.4); GFR NON-AFRICAN AMERICAN > 60
[2018-07-09] MEDS ORDERED: Amoxicillin 250 mg/5 ml Susp (100 ml) ONE (16:43)
--- NOTE | 2018-07-09 17:48 | CP.PCM.CON ---
History of Present Illness - History of Present Illness History of Present Illness: Consult not e for attending Dr. Uriostegui; 53 y/o F Patient with PMH of Anxiety, Arthritis, Asthma, Bipolar Disorder, COPD, Diabetes, Diverticulitis, HTN, Chronic Pain and gout seen ad evaluated in the ED for pain and swelling in the left foot. Patient states that since 3 weeks she is having pain in her left forefoot. She states that the pain is 8/10 on VAS scale. The pain increases by walking. She states that she uses advile for the jennie which helps her slightly. She states that 3 weks ago she was in [place] when she stub her left foot. Patient statess that yesterday she drank alcohol a lot through out the whole day. She states that she has also a callous and ulcer under her right big toe that there for a year but not painful. She denies any tingling, numbness or burning sensation in her leg. She denies any recent F /N/V/C/C/CP/SOB. PMH: Anxiety, Arthritis, Asthma, Bipolar Disorder, COPD, Diabetes, Diverticulitis, HTN, Chronic Pain and gout PSH: Cholecystectomy, Tonsillectomy. Allergies: Benzodiazepines, Diphenhydramine HCL, Ciprofloxacin. Social Hx: Smoker 2 ppd, Use EtOH exessivly (Alcoholic), Use Crack Cocaine. Review of Systems - Review of Systems Review of Systems: As per HPI - Constitutional Constitutional: As Per HPI Past Patient History - Infectious Disease Hx of Infectious Diseases: None - Tetanus Immunizations Tetanus Immunization: Unknown - Past Medical History & Family History Past Medical History?: Yes - Past Social History Smoking Status: Heavy Smoker > 10 Cigarettes Daily - CARDIAC Hx Hypertension: Yes - PULMONARY Hx Asthma: Yes Hx Chronic Obstructive Pulmonary Disease (COPD): Yes - NEUROLOGICAL Hx Neurological Disorder: No - HEENT Hx HEENT Problems: Yes Hx Deafness: Yes - RENAL Hx Chronic Kidney Disease: No - ENDOCRINE/METABOLIC Hx Endocrine Disorders: Yes Hx Diabetes Mellitus Type 2: Yes - HEMATOLOGICAL/ONCOLOGICAL Hx Blood Disorders: No - INTEGUMENTARY Hx Dermatological Problems: No - MUSCULOSKELETAL/RHEUMATOLOGICAL Hx Arthritis: Yes - GASTROINTESTINAL Hx Diverticulitis: Yes - GENITOURINARY/GYNECOLOGICAL Hx Genitourinary Disorders: Yes Hx Urinary Tract Infection: Yes Other/Comment: PROLASE OF UTERUS - PSYCHIATRIC Hx Anxiety: Yes Hx Bipolar Disorder: Yes Hx Substance Use: No (denies 11/15) - SURGICAL HISTORY Hx Cholecystectomy: Yes Hx Tonsillectomy: Yes - ANESTHESIA Hx Anesthesia: Yes Hx Anesthesia Reactions: No Meds Home Medications: Home Medication List Medication Instructions Recorded Confirmed Type Acetaminophen [Tylenol 325mg tab] 650 mg PO Q4 #50 tab 07/09/18 Rx Colchicine 0.6 mg PO Q2 #9 tablet 07/09/18 Rx Ibuprofen [Motrin] 600 mg PO TID #30 tab 07/09/18 Rx Allergies/Adverse Reactions: Allergies Allergy/AdvReac Type Severity Reaction Status Date / Time Benzodiazepines Allergy Severe RASH Verified 07/09/18 14:23 diphenhydramine HCl Allergy Severe RASH Verified 07/09/18 14:23 [From Benadryl] ciprofloxacin [From Cipro] Allergy RASH Verified 07/09/18 14:23 ciprofloxacin HCl Allergy RASH Verified 07/09/18 14:23 [From Cipro] trazadone Allergy Severe ANAPHYLAXIS Uncoded 07/09/18 14:23 Physical Exam - Constitutional Appears: Well, No Acute Distress - Head Exam Head Exam: ATRAUMATIC, NORMOCEPHALIC - Extremities Exam Additional comments: B/L LE Focused exam: Vasc: DP/PT 2/4 b/l, Cap refill < 3 sec to all digits, Temp gradient warm to cool from proximal to distal on the right side and warm top warm on the left side. Moderate non pitting edema is the left foot extending up to the left ankle. Neuro: Gross and protective sensations are intact. Derm: Moderate non pitting edema is the left foot extending up to the left ankle with slight erythema. No open lesions. No clinical signs of active infection. Hyperkeratotic lesion noted under the right hallux. MSK: Muscle power intact 5/5 to all groups. Pain to the left left foot maximum on the dorsum of the 3rd metatarsal bone. - Neurological Exam Neurological exam: Alert, Oriented x3 Results - Vital Signs Recent Vital Signs: Last Vital Signs Temp 98.4 F 07/09/18 14:22 Pulse 95 H 07/09/18 14:22 Resp 20 07/09/18 14:22 BP 133/73 07/09/18 14:22 Pulse Ox 97 07/09/18 17:18 - Labs Result Diagrams: 07/09/18 15:03 07/09/18 15:03 Labs: Laboratory Results - last 24 hr 07/09/18 07/09/18 07/09/18 15:03 15:03 16:08 WBC 9.1 RBC 4.48 Hgb 13.4 Hct 41.5 MCV 92.6 D MCH 29.9 MCHC 32.3 L RDW 13.8 Plt Count 359 MPV 7.9 Neut % (Auto) 67.6 Lymph % (Auto) 25.1 [place] % (Auto) 5.6 Eos % (Auto) 1.5 Baso % (Auto) 0.2 Neut # (Auto) 6.1 Lymph # (Auto) 2.3 [place] # (Auto) 0.5 Eos # (Auto) 0.1 Baso # (Auto) 0.0 Sodium 137 Potassium 3.6 Chloride 105 Carbon Dioxide 25 Anion Gap 11 BUN 15 Creatinine 0.8 Est GFR ( Amer) > 60 Est GFR (Non-Af Amer) > 60 Random Glucose 140 H D Uric Acid 6.6 Calcium 8.4 L Total Bilirubin 0.3 AST 20 ALT 29 Alkaline Phosphatase 118 Total Protein 7.1 Albumin 4.1 Globulin 3.0 Albumin/Globulin Ratio 1.3 Assessment & Plan - Assessment and Plan (Free Text) Assessment: 53 y/o F Patient with PMH of Anxiety, Arthritis, Asthma, Bipolar Disorder, COPD, Diabetes, Diverticulitis, HTN, Chronic Pain and gout seen ad evaluated in the ED for pain and swelling in the left foot (fracture left 3rd metatarsal bone and acute gout exacerbation). Plan: Patient seen and evaluated in the ED. Plan discussed in dtails with attending Dr. Uriostegui. Charts, labs and vitals reviewed: Afebrile, No leukocytosis. Ordered serum uric acid: Pending. Right foot X-ray: fracture noted at the 3rd metatarsal bone neck with bone callus forming around it. Patient LLE put in Buenrostro compression. Patient instructed to keep the dressing C/D/I Discussed with the patient that the source of her pain might be due to the fracture in her left 3rd metatarsal bone or due to gout or both of them. Patient expressed verbal understanding. Patient educated and instructed to do RICE protocol. Patient instructed to WBAT in a surgical shoe. Dispensed left surgical shoe. Patient expressed verbal understanding. Patient to follow up in the podiatry clinic at [facility]. Thank you for the consult. - Date & Time Date: 07/09/18 Time: 17:33
[2018-07-09 17:59] VITALS: PULSE 89; RESP 18; TEMP 98.3
--- NOTE | 2018-07-09 18:18 | RAD ---
Date of service: 07/09/2018 PROCEDURE: Left Foot Radiographs. HISTORY: pain to dorsum of foot COMPARISON: None. FINDINGS: BONES: Fracture distal aspect 3rd metatarsal. The finding is marked on the study for review. JOINTS: Normal. SOFT TISSUES: Soft tissue swelling attests to the acuity of the fracture. OTHER FINDINGS: None. IMPRESSION: Acute fracture 3rd metatarsal. Concordant results with the preliminary interpretation rendered by the emergency department physician procedure.
[2018-07-10 10:03] VITALS: O2SAT 97
== END 2018-07-09 17:58 | disposition home or self-care (01) ==
LOC: C.ER 14:15
DX: S92.332A Displaced fracture of third metatarsal bone, left foot, initial encounter for closed fracture (principal); X58.XXXA Exposure to other specified factors, initial encounter; M10.9 Gout, unspecified
CPT/HCPCS: 73630; 80053; 84550; 85025; 96374; 99284; J1885

== ENCOUNTER 2018-07-12 15:59 | Emergency (ER) | payer MEDICAID ==
[2018-07-12 16:00] VITALS: BMI 37.3
[2018-07-12 16:11] VITALS: BP 112/71; PULSE 76; RESP 18; TEMP 97.9; O2SAT 98
--- NOTE | 2018-07-12 18:11 | C.PDOC ---
History Of Present Illness Patient is a 53 year old female who presents to the ED for evaluation of left foot pain. Patient was seen in the hospital 3 days ago for the same symptoms and xray showed a left third metatarsal fracture, after which patient was referred to a obgyn specialist. Patient went today, but because of a holiday the office was closed and patient presented to the hospital instead. She states that she has been taking Motrin 800mg for her pain and last took medication at 1pm. She denies any other medical complaints at the present moment. Time Seen by Provider: 07/12/18 16:18 Chief Complaint (Nursing): Lower Extremity Problem/Injury History Per: Patient, Family History/Exam Limitations: no limitations Onset/Duration Of Symptoms: Days Current Symptoms Are (Timing): Still Present Recent travel outside of the [place]: No Additional History Per: Patient, Family Past Medical History Reviewed: Historical Data, Nursing Documentation, Vital Signs Vital Signs: Last Vital Signs Temp 97.9 F 07/12/18 16:07 Pulse 76 07/12/18 16:07 Resp 18 07/12/18 16:07 BP 112/71 07/12/18 16:07 Pulse Ox 98 07/12/18 16:07 - Medical History PMH: Anxiety, Arthritis, Asthma, Bipolar Disorder, COPD, Diabetes, Diverticulitis, HTN, Chronic Pain Denies: Chronic Kidney Disease Surgical History: Cholecystectomy, Tonsillectomy - [facility] INJECT/INFUSE NEC (02/16/15) Family History: States: Unknown Family Hx - Social History Hx Tobacco Use: Yes Hx Alcohol Use: No Hx Substance Use: Yes (crack cocaine last used 07/07) - Immunization History Hx Tetanus Toxoid Vaccination: No Hx Influenza Vaccination: No Hx Pneumococcal Vaccination: No Review Of Systems Constitutional: Negative for: Weakness Musculoskeletal: Positive for: Foot Pain (left foot ) Neurological: Negative for: Weakness, Numbness, Dizziness Physical Exam - Physical Exam Appears: Well, Non-toxic, In Acute Distress (due to pain) Skin: Normal Color, Warm, No Rash Head: Atraumatic, Normacephalic Eye(s): bilateral: Normal Inspection, PERRL, EOMI Chest: Symmetrical Cardiovascular: Rhythm Regular Respiratory: Normal Breath Sounds, No Accessory Muscle Use Extremity: Swelling (left foot ), Other (able to walk on left foot with a limp ) Extremity: Right: Atraumatic Pulses: Left Radial: Normal, Right Radial: Normal Neurological/Psych: Oriented x3 ED Course And Treatment O2 Sat by Pulse Oximetry: 98 (on RA) Pulse Ox Interpretation: Normal Medical Decision Making Medical Decision Making: Plan: Motrin 600mg PO Ultram 50mg PO Podiatry evaluation. Will give new podiatry recommendations to patient Podiatry wants to cast patient but believe she will be noncompliant Cast was placed on patient. Recommended follow up with podiatry upcoming Thursday. Disposition Counseled Patient/Family Regarding: Diagnosis, Need For Followup, Rx Given - Disposition Referrals: [facility] [Outside] Disposition: HOME/ ROUTINE Disposition Time: 18:08 Condition: STABLE Additional Instructions: This is a non-weight bearing injury. Use the crutches when there is a need to ambulate. Return to podiatry clinic this coming thursday. Prescriptions: RX: Ibuprofen [Motrin Tab] 800 mg PO TID PRN #21 tab PRN Reason: Pain, Moderate (4-7) RX: traMADol [Ultram] 50 mg PO TID PRN #9 tab PRN Reason: Pain, Severe (8-10) Instructions: Foot Fracture (DC) Forms: General Discharge Instructions, [facility] (Indian), Work Excuse - Clinical Impression Clinical Impression: Foot fracture, left - PA / SUPERVISOR ORDER TAKERS / Resident Statement MD/DO has examined the patient and agrees with the treatment plan. - Scribe Statement The provider has reviewed the documentation as recorded by the Tutu Garay All medical record entries made by the Joelibjimi were at my direction and personally dictated by me. I have reviewed the chart and agree that the record accurately reflects my personal performance of the history, physical exam, medical decision making, and the department course for this patient. I have also personally directed, reviewed, and agree with the discharge instructions and disposition.
--- NOTE | 2018-07-12 23:26 | CP.PCM.CON ---
History of Present Illness - History of Present Illness History of Present Illness: Podiatry Consult Note - Dr. Lorenz 53F PMH of Anxiety, Arthritis, Asthma, Bipolar Disorder, COPD, Diabetes, Diverticulitis, HTN, Chronic Pain and gout seen and evaluated in ED concerning left foot pain. Friend present at bedside. Patient states she was seen in the ED last Thursday for the same reason and was told to follow up in the podiatry clinic for continued care; clinic was cancelled so presented to ED for further evaluation. Patient reports 8/10 pain in left foot, unchanged since prior presentation. Patient states she has remained weight-bearing on her left foot; admits to taking Advil as needed for pain. Patient does not recall how she injured her foot but pain has persisted for the past 3 weeks. Patient denies n/v/f/d/c/sob/maher/cp. Offers no other complaints. PMH: Anxiety, Arthritis, Asthma, Bipolar Disorder, COPD, Diabetes, Diverticulitis, HTN, Chronic Pain and gout PSH: Cholecystectomy, Tonsillectomy. Allergies: Benzodiazepines, Diphenhydramine HCL, Ciprofloxacin. Social Hx: Smoker 2 ppd, Use EtOH exessivly (Alcoholic), Use Crack Cocaine. Review of Systems - Review of Systems All systems: reviewed and no additional remarkable complaints except (as per HPI) Past Patient History - Infectious Disease Hx of Infectious Diseases: None - Tetanus Immunizations Tetanus Immunization: Unknown - Past Medical History & Family History Past Medical History?: Yes - Past Social History Smoking Status: Heavy Smoker > 10 Cigarettes Daily - CARDIAC Hx Hypertension: Yes - PULMONARY Hx Asthma: Yes Hx Chronic Obstructive Pulmonary Disease (COPD): Yes - NEUROLOGICAL Hx Neurological Disorder: No - HEENT Hx HEENT Problems: Yes Hx Deafness: Yes - RENAL Hx Chronic Kidney Disease: No - ENDOCRINE/METABOLIC Hx Endocrine Disorders: Yes Hx Diabetes Mellitus Type 2: Yes - HEMATOLOGICAL/ONCOLOGICAL Hx Blood Disorders: No - INTEGUMENTARY Hx Dermatological Problems: No - MUSCULOSKELETAL/RHEUMATOLOGICAL Hx Arthritis: Yes - GASTROINTESTINAL Hx Diverticulitis: Yes - GENITOURINARY/GYNECOLOGICAL Hx Genitourinary Disorders: Yes Hx Urinary Tract Infection: Yes Other/Comment: PROLASE OF UTERUS - PSYCHIATRIC Hx Anxiety: Yes Hx Bipolar Disorder: Yes Hx Substance Use: Yes (crack cocaine last used 07/07) - SURGICAL HISTORY Hx Cholecystectomy: Yes Hx Tonsillectomy: Yes - ANESTHESIA Hx Anesthesia: Yes Hx Anesthesia Reactions: No Meds Home Medications: Home Medication List Medication Instructions Recorded Confirmed Type Ibuprofen [Motrin Tab] 800 mg PO TID PRN #21 tab 07/12/18 Rx traMADol [Ultram] 50 mg PO TID PRN #9 tab 07/12/18 Rx Allergies/Adverse Reactions: Allergies Allergy/AdvReac Type Severity Reaction Status Date / Time Benzodiazepines Allergy Severe RASH Verified 07/09/18 14:23 diphenhydramine HCl Allergy Severe RASH Verified 07/09/18 14:23 [From Benadryl] ciprofloxacin [From Cipro] Allergy RASH Verified 07/09/18 14:23 ciprofloxacin HCl Allergy RASH Verified 07/09/18 14:23 [From Cipro] trazadone Allergy Severe ANAPHYLAXIS Uncoded 07/09/18 14:23 Physical Exam - Constitutional Appears: Non-toxic, No Acute Distress - Extremities Exam Additional comments: B/L LE Focused exam: Vasc: DP/PT 2/4 b/l, Cap refill < 3 sec to all digits. Temperature gradient warm to warm b/l. Moderate nonpitting edema noted to left foot Neuro: Gross and protective sensations are intact. Derm: No open lesions. No clinical signs of active infection. Hyperkeratotic lesion noted under the right hallux. MSK: Muscle power intact 5/5 to all groups. Pain to the left left foot maximum on the dorsum of the 3rd metatarsal bone. - Neurological Exam Neurological exam: Alert, Oriented x3 - Psychiatric Exam Psychiatric exam: Normal Affect, Normal Mood Results - Vital Signs Recent Vital Signs: Last Vital Signs Temp 97.9 F 07/12/18 16:07 Pulse 76 07/12/18 16:07 Resp 18 07/12/18 16:07 BP 112/71 07/12/18 16:07 Pulse Ox 98 07/12/18 19:08 Assessment & Plan - Assessment and Plan (Free Text) Assessment: 53F with left 3rd metatarsal fracture Plan: Patient seen and evaluated Discussed with attending, Dr. Lorenz Right foot XR reviewed: distal left 3rd metatarsal fracture with surrounding callus formation Fiberglass cast applied to LLE. Discussed with patient if she remains noncompliant with strict NWB LLE orders, will likely need surgical intervention for correction of deformity. Patient agreeable to be NWB LLE with crutch as sistance Advised patient to keep dressing clean/dry/intact until clinic appointment Recommend RICE therapy Pain control per ED Patient to follow up in the podiatry clinic next Thursday, 07/19 Stable for dc per podiatry Thank you for the consult
== END 2018-07-12 18:28 | disposition home or self-care (01) ==
LOC: C.ER 15:59
DX: S92.332A Displaced fracture of third metatarsal bone, left foot, initial encounter for closed fracture (principal); X58.XXXA Exposure to other specified factors, initial encounter; E11.9 Type 2 diabetes mellitus without complications; I10 Essential (primary) hypertension; F31.9 Bipolar disorder, unspecified; J44.9 Chronic obstructive pulmonary disease, unspecified; F17.210 Nicotine dependence, cigarettes, uncomplicated; M19.90 Unspecified osteoarthritis, unspecified site

== ENCOUNTER → 2018-08-03 | Emergency (ER) | payer MEDICAID | END | disposition left against medical advice (07) | LOC: C.ER 18:53 ==

== ENCOUNTER 2018-08-10 11:02 | Inpatient (IN) | payer MEDICAID ==
[2018-08-10 11:03] VITALS: BMI 37.3
[2018-08-10 13:08] LABS: BASO % 0.2 % (0.0-2.0); EOS # 0.2 K/uL (0.0-0.7); EOS % 1.8 % (0.0-4.0); HEMOGLOBIN 13.9 g/dL (11.0-16.0); LYMPH # 2.7 K/uL (1.0-4.3); LYMPH % 27.6 % (20.0-40.0); MEAN CORPUSCULAR HEMOGLOBIN 31.9 pg (27.0-31.0); MEAN CORPUSCULAR HGB CONC 33.9 g/dL (33.0-37.0); MEAN PLATELET VOLUME 8.1 fL (7.2-11.7); MONO # 0.6 K/uL (0.0-0.8); MONO % 6.4 % (0.0-10.0); NEUT # 6.2 K/uL (1.8-7.0); RBC 4.36 Mil/uL (3.80-5.20); RED CELL DISTRIBUTION WIDTH 14.2 % (11.5-14.5); WHITE BLOOD COUNT 9.7 K/uL (4.8-10.8)
[2018-08-10 13:25] LABS: ALB/GLOB RATIO 1.3 (1.0-2.1); ALBUMIN 3.8 g/dL (3.5-5.0); ALT/SGPT 13 U/L (9-52); AST/SGOT 16 U/L (14-36); BLOOD UREA NITROGEN 11 mg/dL (7-17); CALCIUM 8.9 mg/dl (8.6-10.4); GFR NON-AFRICAN AMERICAN > 60
--- NOTE | 2018-08-10 13:47 | C.PDOC ---
History Of Present Illness 53 year old female presents to ED requesting cast removal from her left foot. Patient has been to the ED multiple times from cast removal and had the cast placed 1 month ago. Patient states that the cast is cutting her toes. She also complains of a draining wound on her right foot.Patient was given crutches but her daughter states that "she's not made for crutches." Patient states that she has been taking Motrin for the pain with no improvement. Patient has PMHx of diabetes, gout, and arthritis. She denies fever, chills, and vomiting. Time Seen by Provider: 08/10/18 11:57 Chief Complaint (Nursing): Lower Extremity Problem/Injury History Per: Patient History/Exam Limitations: no limitations Current Symptoms Are (Timing): Still Present - Ankle/Foot Description Of Injury: Other (cast cutting into the toes of the left foot) Past Medical History Reviewed: Historical Data, Nursing Documentation, Vital Signs Vital Signs: Last Vital Signs Temp 98.2 F 08/10/18 11:12 Pulse 86 08/10/18 11:12 Resp 16 08/10/18 11:12 BP 125/87 08/10/18 11:12 Pulse Ox 97 08/10/18 11:12 - Medical History PMH: Anxiety, Arthritis, Asthma, Bipolar Disorder, COPD, Diabetes, Diverticulitis, HTN, Chronic Pain Denies: Chronic Kidney Disease Surgical History: Cholecystectomy, Tonsillectomy - [facility] Procedures INJECT/INFUSE NEC (02/16/15) Family History: States: Unknown Family Hx - Social History Hx Tobacco Use: Yes Hx Alcohol Use: Yes Hx Substance Use: Yes (crack cocaine last used) - Immunization History Hx Tetanus Toxoid Vaccination: No Hx Influenza Vaccination: No Hx Pneumococcal Vaccination: No Review Of Systems Constitutional: Negative for: Fever, Chills, Weakness Gastrointestinal: Negative for: Nausea Musculoskeletal: Positive for: Foot Pain (cast on the left foot, draining wound on the right foot) Neurological: Negative for: Weakness, Numbness, Dizziness Physical Exam - Physical Exam Appears: No Acute Distress, Unkempt (foul smelling) Skin: Normal Color, Warm, Dry Head: Atraumatic, Normacephalic Eye(s): bilateral: Normal Inspection, PERRL, EOMI Oral Mucosa: Moist Neck: Normal ROM, Supple Chest: Symmetrical Cardiovascular: Rhythm Regular, No Murmur Respiratory: No Accessory Muscle Use, No Rales, No Rhonchi, No Wheezing Gastrointestinal/Abdominal: Soft, No Tenderness Extremity: Capillary Refill (<2 seconds), Other (1cm by 1 cm draining wound on the plantar aspect of the right great toe, hyperkeratotic, no discharge, dressing dirty; able to move toes freely on the left lower extremity) Extremity: Bilateral: Normal Color And Temperature Pulses: Left Dorsalis Pedis: Normal, Right Dorsalis Pedis: Normal Neurological/Psych: Oriented x3, Normal Speech, Normal Cognition ED Course And Treatment - Laboratory Results Result Diagrams: 08/10/18 13:05 08/10/18 13:05 Lab Results: Total Bilirubin 0.2 mg/dL (0.2-1.3) 08/10/18 13:05 AST 16 U/L (14-36) 08/10/18 13:05 ALT 13 U/L (9-52) 08/10/18 13:05 Alkaline Phosphatase 100 U/L (38-126) 08/10/18 13:05 Total Protein 6.7 g/dL (6.3-8.3) 08/10/18 13:05 Albumin 3.8 g/dL (3.5-5.0) 08/10/18 13:05 Globulin 2.9 gm/dL (2.2-3.9) 08/10/18 13:05 Albumin/Globulin Ratio 1.3 (1.0-2.1) 08/10/18 13:05 O2 Sat by Pulse Oximetry: 97 (in RA) Medical Decision Making Medical Decision Making: Impression: 53 year old female with cast on the left leg and wound to the right foot Plan: CMP CBC Right foot X-ray blood culture Tramadol PO 1238: Podiatry resident called for patient. Update: Dr. Lorenz (information developer)took cast off patient's left foot. Babatunde's compression used on patient. Non-weight bearing. Patient instructed to use walker. Wound on the right foot was cleaned and wound culture was ordered. Right foot X-rayed for possible OM. The right foot was dressed, disinfected with betadine, and cleaned. 1505 Patient accepted by . 1530: Dr. Saez called back saying that he cannot accept the patient. 1545: agrees to accept patient. Per the podiatry resident (), Dr. Lorenz recommends that the patient be admitted. Disposition Counseled Patient/Family Regarding: Studies Performed, Diagnosis - Disposition Disposition: HOSPITALIZED Disposition Time: 15:04 Condition: STABLE - Clinical Impression Clinical Impression: Wound drainage, Cocaine abuse - Scribe Statement The provider has reviewed the documentation as recorded by the Scribe (Marilu Ross) All medical record entries made by the Scribe were at my direction and personally dictated by me. I have reviewed the chart and agree that the record accurately reflects my personal performance of the history, physical exam, m edical decision making, and the department course for this patient. I have also personally directed, reviewed, and agree with the discharge instructions and disposition.
[2018-08-10] MEDS ORDERED: Vancomycin 1 GM 1 GM/250 ML BAG IVPB ONE (15:12)
--- NOTE | 2018-08-10 15:32 | RAD ---
Date of service: 08/10/2018 PROCEDURE: Bilateral Feet Radiographs. HISTORY: wounds COMPARISON: 07/09/2018. FINDINGS: BONES: Right Foot: Bone alignment and mineralization are normal. There is no acute displaced fracture or bone destruction. There is a prominent plantar calcaneal spur. Left Foot: Cast obscures fine bony details. There is redemonstration of a healing fracture in the head of the 3rd metatarsal with blurring of fracture margins. A persistent transverse lucency is visualized. There is mild periarticular bone demineralization. There is a prominent plantar calcaneal spur. JOINTS: Right Foot: Mild degenerative osteoarthrosis in the 1st MTP and interphalangeal joints. The remaining joint spaces are preserved. Left Foot: Mild degenerative osteoarthrosis in the 1st MTP and interphalangeal joints. Mild degenerative osteoarthrosis in the talonavicular joint. SOFT TISSUES: Right Foot: Normal. Left Foot: Normal. OTHER FINDINGS: None. IMPRESSION: 1. Left foot: Cast obscures fine bony details. Subacute healing fracture in the head of the 3rd metatarsal. 2. Mild degenerative osteoarthrosis in the 1st MTP and 1st interphalangeal joints.
[2018-08-10 16:19] LABS: BARBITURATES, UR NEGATIVE (NEGATIVE); BENZODIAZEPINES, UR NEGATIVE (NEGATIVE); PHENCYCLIDINE, UR NEGATIVE (NEGATIVE)
[2018-08-10 17:18] LABS: OPIATES, UR NEGATIVE (NEGATIVE)
--- NOTE | 2018-08-10 18:28 | CP.PCM.CON ---
History of Present Illness - History of Present Illness History of Present Illness: Podiatry Consult Note - Dr. Lorenz 53F PMH of Anxiety, Arthritis, Asthma, Bipolar Disorder, COPD, Diabetes, Diverticulitis, HTN, Chronic Pain and gout seen and evaluated in ED for left foot 3rd distal metatarsal fracture being treated conservatively and right foot wound. Daughter is at bedside during the encounter. Patient susana has had the left foot fracture at the end of June 2018. Susana has been placed in the cast and instructed to NWB since. Daughter and patient reports it's difficult to be in the cast and nonweightbearing because of their currently situation. They are currently homeless. Admits to being fully weight bear in the cast. Susana can not use crutches. Patient complains of being in the cast and demanded the cast be taken off and remain off. Patient susana has not been able to follow up in podiatry clinic as instructed because has some things to do. Susana trying to come to clinic this Thursday, but podiatry clinic was closed by the time she got there. Susana has been in this cast for 3 weeks and the bottom of the cast has broken after placing the cast on the ground while she was showering. Patient reports that the cast is causing her foot pain and rubbing on her foot. Patient also reports pain to right foot. Susana has a right foot nonhealing wound that has been there for over 1 year. Was a callus and became a wound. Susana has noticed drainage from the wound over 6 months and has a smell to the wound. Susana tries to wash her foot with soap and water when she can. Admits only placing dressing to right foot only once in a while. Denies nausea, vomiting, shortness of breath, chest pains or chills. PMH: Anxiety, Arthritis, Asthma, Bipolar Disorder, COPD, Diabetes, Diverticuli tis, HTN, Chronic Pain and gout PSH: Cholecystectomy, Tonsillectomy. Allergies: Benzodiazepines, Diphenhydramine HCL, Ciprofloxacin. Social Hx: Smoker 2 ppd, Use EtOH excessively (Alcoholic), Use Crack Cocaine. Past Patient History - Infectious Disease Hx of Infectious Diseases: None - Tetanus Immunizations Tetanus Immunization: Unknown - Past Medical History & Family History Past Medical History?: Yes - Past Social History Smoking Status: Heavy Smoker > 10 Cigarettes Daily - CARDIAC Hx Hypertension: Yes - PULMONARY Hx Asthma: Yes Hx Chronic Obstructive Pulmonary Disease (COPD): Yes - NEUROLOGICAL Hx Neurological Disorder: No - HEENT Hx HEENT Problems: Yes Hx Deafness: Yes - RENAL Hx Chronic Kidney Disease: No - ENDOCRINE/METABOLIC Hx Endocrine Disorders: Yes Hx Diabetes Mellitus Type 2: Yes - HEMATOLOGICAL/ONCOLOGICAL Hx Blood Disorders: No - INTEGUMENTARY Hx Dermatological Problems: No - MUSCULOSKELETAL/RHEUMATOLOGICAL Hx Arthritis: Yes - GASTROINTESTINAL Hx Diverticulitis: Yes - GENITOURINARY/GYNECOLOGICAL Hx Genitourinary Disorders: Yes Hx Urinary Tract Infection: Yes Other/Comment: PROLASE OF UTERUS - PSYCHIATRIC Hx Anxiety: Yes Hx Bipolar Disorder: Yes Hx Substance Use: Yes (crack cocaine last used) - SURGICAL HISTORY Hx Cholecystectomy: Yes Hx Tonsillectomy: Yes - ANESTHESIA Hx Anesthesia: Yes Hx Anesthesia Reactions: No Meds Allergies/Adverse Reactions: Allergies Allergy/AdvReac Type Severity Reaction Status Date / Time diphenhydramine HCl Allergy Severe RASH Verified 08/10/18 11:14 [From Benadryl] ciprofloxacin HCl Allergy RASH Verified 08/10/18 11:14 [From Cipro] trazadone Allergy Severe ANAPHYLAXIS Uncoded 08/10/18 11:14 - Medications Medications: Current Medications Enoxaparin Sodium (Lovenox) 40 mg SC DAILY DOUGLAS Vancomycin/Sodium Chloride (Vancomycin 1 Gm/Ns 200 Ml) 1 gm in 200 mls @ 133 mls/hr IVPB Q12H DOUGLAS; Protocol Stop: 08/16/18 03:01 Piperacillin Sod/Tazobactam Sod (Zosyn 3.375 Gm Iv Premix) 3.375 gm in 50 mls @ 100 mls/hr IVPB Q6H DOUGLAS; Protocol Tramadol HCl (Ultram) 50 mg PO TID PRN PRN Reason: Pain, moderate (4-7) Last Admin: 08/10/18 18:27 Dose: 50 mg Physical Exam - Constitutional Appears: Well, Non-toxic, No Acute Distress - Extremities Exam Extremities exam: Negative for: calf tenderness Additional comments: B/L LE Focused exam: Vasc: DP/PT 2/4 b/l, Cap refill < 3 sec to all digits. Temperature gradient warm to warm b/l. Moderate nonpitting edema noted to left foot and right hallux Neuro: Gross and protective sensations are intact bilaterally Derm: LEFT LOWER EXTREMITY superficial abrasions noted to the dorsum aspect of hallux and 2nd digit secondary to pressure from cast with WB. No drainage, no odor, no purulence, no abscess RIGHT LOWER EXTREMITY: ulceration noted to plantar aspect of the hallux measuring approximately 1 cm x 1 cm x .3 cm and probes to bone. Malodorous. No active drainage or purulence expressed during examination, no abscess, no tunneling or undermining appreciated. Slight erythema noted. Periwound and wound borders are intact and hyperkeratotic. Skin is dry and callused. MSK: Muscle power intact 5/5 to all groups: dorsiflexion, plantarflexion, inversion and eversion. Pain to palpation on the 3rd metatarsal distally left foot. Pain with palpation of the right hallux. Able to wiggle toes. - Neurological Exam Neurological exam: Alert, Oriented x3 - Psychiatric Exam Psychiatric exam: Normal Affect, Normal Mood Results - Vital Signs Recent Vital Signs: Last Vital Signs Temp 98.5 F 08/10/18 14:42 Pulse 69 08/10/18 14:42 Resp 16 08/10/18 11:12 BP 146/88 08/10/18 14:42 Pulse Ox 97 08/10/18 17:43 - Labs Result Diagrams: 08/10/18 13:05 08/10/18 13:05 Labs: Laboratory Results - last 24 hr 08/10/18 08/10/18 08/10/18 13:05 13:05 15:49 WBC 9.7 RBC 4.36 Hgb 13.9 Hct 41.0 MCV 94.0 MCH 31.9 H MCHC 33.9 RDW 14.2 Plt Count 344 MPV 8.1 Neut % (Auto) 64.0 Lymph % (Auto) 27.6 [place] % (Auto) 6.4 Eos % (Auto) 1.8 Baso % (Auto) 0.2 Neut # (Auto) 6.2 Lymph # (Auto) 2.7 [place] # (Auto) 0.6 Eos # (Auto) 0.2 Baso # (Auto) 0.0 Sodium 139 Potassium 3.8 Chloride 104 Carbon Dioxide 28 Anion Gap 11 BUN 11 Creatinine 0.8 Est GFR ( Amer) > 60 Est GFR (Non-Af Amer) > 60 Random Glucose 138 H Calcium 8.9 Total Bilirubin 0.2 AST 16 ALT 13 Alkaline Phosphatase 100 Total Protein 6.7 Albumin 3.8 Globulin 2.9 Albumin/Globulin Ratio 1.3 Urine Opiates Screen Negative Urine Methadone Screen Negative Ur Barbiturates Screen Negative Ur Phencyclidine Scrn Negative Ur Amphetamines Screen Negative U Benzodiazepines Scrn Negative U Oth Cocaine Metabols Positive H U Cannabinoids Screen Negative Assessment & Plan - Assessment and Plan (Free Text) Assessment: 53F PMH of Anxiety, Arthritis, Asthma, Bipolar Disorder, COPD, Diabetes, Diverticulitis, HTN, Chronic Pain and gout with 1) left foot 3rd distal metatarsal fracture secondary to trauma being treated conservatively with delayed healing noted 2) left foot non infected superficial abrasions secondary to pressure from cast 3) infected right hallux wound with likely underlying osteomyelitis secondary to pressure and DM Plan: Patient seen and examined Discussed plan in detail with attending Dr. Lorenz Labs, vitals, chart reviewed X-rays bilateral foot reviewed- left foot distal 3rd metatarsal fracture with callus formation noted, right foot with 1st distal hallux ulceration and likely underlying OM Patient to continue to NWB to the left lower extremity with the use of walker Patient cannot tolerate cast. Applied Buenrostro compression to left lower extremity. Patient may WBAT to right LE Please dispense surgical shoe Will order MRI once patient is on the floors Will retake wound culture of the right plantar hallux ulcer once on floors ID consulted, recommendations appreciated Possible surgical intervention of right foot hallux amputation pending MRI for underlying OM Cleansed ulceration with betadine, and applied dsd Will continue to follow patient while on floors Thank you for allowing us to participate in patient's care
[2018-08-10 19:19] VITALS: RESP 20
[2018-08-10] MEDS: Piperacill/Tazo 3.375gm in Dex 3.375 GM/50 ML BAG IVPB SCH (19:45)
[2018-08-10] MEDS: Oxycodone/Acetaminophen 5/325 mg Tab PO PRN (20:12)
[2018-08-10] MEDS: (Novolog) Insulin Aspart, Recombinant 100 u/ml 10 ml vial SC SCH (21:26)
--- NOTE | 2018-08-11 00:04 | CP.PCM.HP ---
Present on Admission - Present on Admission Any Indicators Present on Admission: No Past Patient History - Infectious Disease Hx of Infectious Diseases: None - Tetanus Immunizations Tetanus Immunization: Unknown - Past Medical History & Family History Past Medical History?: Yes - Past Social History Smoking Status: Heavy Smoker > 10 Cigarettes Daily - CARDIAC Hx Hypertension: Yes - PULMONARY Hx Asthma: Yes Hx Chronic Obstructive Pulmonary Disease (COPD): Yes - NEUROLOGICAL Hx Neurological Disorder: No - HEENT Hx HEENT Problems: Yes Hx Deafness: Yes - RENAL Hx Chronic Kidney Disease: No - ENDOCRINE/METABOLIC Hx Endocrine Disorders: Yes Hx Diabetes Mellitus Type 2: Yes - HEMATOLOGICAL/ONCOLOGICAL Hx Blood Disorders: No - INTEGUMENTARY Hx Dermatological Problems: No - MUSCULOSKELETAL/RHEUMATOLOGICAL Hx Arthritis: Yes - GASTROINTESTINAL Hx Diverticulitis: Yes - GENITOURINARY/GYNECOLOGICAL Hx Genitourinary Disorders: Yes Hx Urinary Tract Infection: Yes Other/Comment: PROLASE OF UTERUS - PSYCHIATRIC Hx Anxiety: Yes Hx Bipolar Disorder: Yes Hx Substance Use: Yes (crack cocaine last used) - SURGICAL HISTORY Hx Cholecystectomy: Yes Hx Tonsillectomy: Yes - ANESTHESIA Hx Anesthesia: Yes Hx Anesthesia Reactions: No Meds Allergies/Adverse Reactions: Allergies Allergy/AdvReac Type Severity Reaction Status Date / Time diphenhydramine HCl Allergy Severe RASH Verified 08/10/18 11:14 [From Benadryl] ciprofloxacin HCl Allergy RASH Verified 08/10/18 11:14 [From Cipro] trazadone Allergy Severe ANAPHYLAXIS Uncoded 08/10/18 11:14 Results - Vital Signs Recent Vital Signs: Last Vital Signs Temp 98.1 F 08/10/18 19:19 Pulse 78 08/10/18 19:19 Resp 20 08/10/18 19:19 BP 160/84 H 08/10/18 19:19 Pulse Ox 97 08/10/18 19:19 - Labs Result Diagrams: 08/10/18 13:05 08/10/18 13:05 Labs: Laboratory Results - last 24 hr 08/10/18 08/10/18 08/10/18 13:05 13:05 15:49 WBC 9.7 RBC 4.36 Hgb 13.9 Hct 41.0 MCV 94.0 MCH 31.9 H MCHC 33.9 RDW 14.2 Plt Count 344 MPV 8.1 Neut % (Auto) 64.0 Lymph % (Auto) 27.6 [place] % (Auto) 6.4 Eos % (Auto) 1.8 Baso % (Auto) 0.2 Neut # (Auto) 6.2 Lymph # (Auto) 2.7 [place] # (Auto) 0.6 Eos # (Auto) 0.2 Baso # (Auto) 0.0 Sodium 139 Potassium 3.8 Chloride 104 Carbon Dioxide 28 Anion Gap 11 BUN 11 Creatinine 0.8 Est GFR ( Amer) > 60 Est GFR (Non-Af Amer) > 60 POC Glucose (mg/dL) Random Glucose 138 H Calcium 8.9 Total Bilirubin 0.2 AST 16 ALT 13 Alkaline Phosphatase 100 Total Protein 6.7 Albumin 3.8 Globulin 2.9 Albumin/Globulin Ratio 1.3 Urine Opiates Screen Negative Urine Methadone Screen Negative Ur Barbiturates Screen Negative Ur Phencyclidine Scrn Negative Ur Amphetamines Screen Negative U Benzodiazepines Scrn Negative U Oth Cocaine Metabols Positive H U Cannabinoids Screen Negative 08/10/18 21:03 WBC RBC Hgb Hct MCV MCH MCHC RDW Plt Count MPV Neut % (Auto) Lymph % (Auto) [place] % (Auto) Eos % (Auto) Baso % (Auto) Neut # (Auto) Lymph # (Auto) [place] # (Auto) Eos # (Auto) Baso # (Auto) Sodium Potassium Chloride Carbon Dioxide Anion Gap BUN Creatinine Est GFR ( Amer) Est GFR (Non-Af Amer) POC Glucose (mg/dL) 141 H Random Glucose Calcium Total Bilirubin AST ALT Alkaline Phosphatase Total Protein Albumin Globulin Albumin/Globulin Ratio Urine Opiates Screen Urine Methadone Screen Ur Barbiturates Screen Ur Phencyclidine Scrn Ur Amphetamines Screen U Benzodiazepines Scrn U Oth Cocaine Metabols U Cannabinoids Screen
[2018-08-11] MEDS: Piperacill/Tazo 3.375gm in Dex 3.375 GM/50 ML BAG IVPB SCH ×4 (00:19→19:22)
[2018-08-11] MEDS: Oxycodone/Acetaminophen 5/325 mg Tab PO PRN ×4 (02:29→17:02)
[2018-08-11] MEDS: Vancomycin 1 gm/NS 200 ml 1 GM/200 ML BAG IVPB SCH ×2 (02:32→14:47)
--- NOTE | 2018-08-11 06:12 | HP ---
CHIEF COMPLAINT: Bilateral foot ulcers. HISTORY OF PRESENT ILLNESS: This is a 53-year-old female, morbidly obese with history of diabetes for many years. She is a drug user. Has hypertension, hyperlipidemia. She has history of injury to the left foot. She had a cast for almost six weeks and after that when the cast was removed, she was found to have ulcers on the dorsum of left foot and the bottom of the right foot as well. The patient has been having draining wound on the right foot before the cast was removed, but she did not take any medical attention, and the patient has been using crutches. She denies fever, chills, or rigors. She denies any history of body ache, tiredness, anorexia, malaise, or fatigue. She denies any history of chest pain, palpitation, weakness, or dizziness. She denies any history of polyuria, polydipsia, polyphagia. She denies any history of pyuria. There is no history of trauma, fall, loss of consciousness. No history of seizure-like activity. PAST MEDICAL HISTORY: Morbid obesity, diabetes, hypertension, hyperlipidemia. SOCIAL HISTORY: She smokes, she drinks, and she uses drugs. FAMILY HISTORY: Noncontributory. PHYSICAL EXAMINATION: GENERAL: A middle-aged female in no acute distress. VITAL SIGNS: Blood pressure 120/85, pulse 76, respiratory rate 20, temperature 98.5. SKIN: The patient has a wound on the bottom of right foot which has been dressed and it has been seen and documented by Podiatry, and she has another wound on the dorsum of left foot which has a dressing and the wound has been described in the previous progress notes. HEENT: Atraumatic and normocephalic. Negative pallor. Negative jaundice. Extraocular movements are intact. NECK: Supple. No JVD. No lymph node. No thyromegaly. No carotid bruit. CHEST WALL: Bilateral symmetrical expansion. No tenderness. No deformity. LUNGS: Bilaterally clear. No rales. No rhonchi. CARDIOVASCULAR SYSTEM: PMI in fifth intercostal space. S1 and S2. Regular. No heave. No thrill. ABDOMEN: Soft and nontender. Bowel sounds are positive. RECTAL: No masses. No bleed. EXTREMITIES: No clubbing, cyanosis, or edema. CENTRAL NERVOUS SYSTEM: Awake, alert, and oriented x3. Cranial nerves II through XII are normal. Power 5/5 x4. Plantars are downgoing. She has bilateral wounds on the feet as described. ASSESSMENT: 1. Bilateral lower feet ulcers, rule out osteomyelitis. 2. Type 2 diabetes. 3. Cocaine use. 4. Hypertension. PLAN: Admit. Detailed orders are written. Seen and examined the patient. Cyrus Streeter MD
[2018-08-11] MEDS: (Novolog) Insulin Aspart, Recombinant 100 u/ml 10 ml vial SC SCH ×4 (08:30→20:59)
[2018-08-11] MEDS: Enoxaparin 40 mg Syringe SC SCH (09:45)
--- NOTE | 2018-08-11 14:45 | NM ---
Date of service: 08/11/2018 PROCEDURE: Three-phase . Bone Scan HISTORY: Osteomyelitis suspected 1st digit right foot COMPARISON: August 10, 2018. Bilateral foot radiographs TECHNIQUE: Following administration of 23.6 miCu of Tc MDP three-phase bone scan attention right foot 1st digit performed. FINDINGS: Flow component: Increased flow to the right foot, 1st digit. Blood pool component: Accumulation of radionuclide hallux, right for at. Delayed images at 3:00: Retention of radionuclide 1st digit right foot. Other findings: Degenerative changes both knees, both ankles and the base of the 3rd metatarsal left foot. IMPRESSION: Positive 3 phase bone scan for acute osteomyelitis 1st digit right foot. Additional benign and/or incidental findings described above.
--- NOTE | 2018-08-11 22:50 | CP.PCM.PN ---
Subjective - Date & Time of Evaluation Date of Evaluation: 08/11/18 Time of Evaluation: 07:40 - Subjective Subjective: dictated Objective - Vital Signs/Intake and Output Vital Signs (last 24 hours): Temp Pulse Resp BP Pulse Ox 97.8 F 62 20 112/73 96 08/11/18 15:57 08/11/18 15:57 08/11/18 15:57 08/11/18 15:57 08/11/18 15:57 Intake and Output: 08/11/18 08/12/18 18:59 06:59 Intake Total 730 550 Balance 730 550 - Medications Medications: Current Medications Enoxaparin Sodium (Lovenox) 40 mg SC DAILY [facility] Last Admin: 08/11/18 09:45 Dose: 40 mg Vancomycin/Sodium Chloride (Vancomycin 1 Gm/Ns 200 Ml) 1 gm in 200 mls @ 133 mls/hr IVPB Q12H [facility]; Protocol Stop: 08/16/18 03:01 Last Admin: 08/11/18 14:47 Dose: 133 mls/hr Piperacillin Sod/Tazobactam Sod (Zosyn 3.375 Gm Iv Premix) 3.375 gm in 50 mls @ 100 mls/hr IVPB Q6H [facility]; Protocol Last Admin: 08/11/18 19:22 Dose: 100 mls/hr Influenza Virus Vaccine (Flucelvax Quad [id number] Syr) 60 mcg IM .ONCE ONE Stop: 08/13/18 10:01 Insulin Aspart (Novolog) 0 unit SC ACHS [facility]; Protocol Last Admin: 08/11/18 20:59 Dose: Not Given Metformin HCl (Glucophage) 500 mg PO BID [facility] Last Admin: 08/11/18 17:02 Dose: 500 mg Oxycodone/Acetaminophen (Percocet 5/325 Mg Tab) 1 tab PO Q4H PRN PRN Reason: Pain, moderate (4-7) Stop: 08/13/18 19:16 Last Admin: 08/11/18 17:02 Dose: 1 tab Pneumococcal Polyvalent Vaccine (Pneumovax 23 Vaccine) 0.5 ml IM .ONCE ONE Stop: 08/13/18 10:01 Rosuvastatin Calcium (Crestor) 10 mg PO HS [facility] Last Admin: 08/11/18 21:04 Dose: 10 mg Zolpidem Tartrate (Ambien) 5 mg PO HS PRN PRN Reason: Insomnia Last Admin: 08/11/18 21:04 Dose: 5 mg - Labs Labs: 08/10/18 13:05 08/10/18 13:05
[2018-08-12] MEDS: Piperacill/Tazo 3.375gm in Dex 3.375 GM/50 ML BAG IVPB SCH ×2 (00:27→06:15)
[2018-08-12] MEDS: Oxycodone/Acetaminophen 5/325 mg Tab PO PRN ×2 (01:56→07:19)
[2018-08-12] MEDS: Vancomycin 1 gm/NS 200 ml 1 GM/200 ML BAG IVPB SCH (02:00)
--- NOTE | 2018-08-12 03:07 | PN ---
DATE: 08/11/2018 SUBJECTIVE: The patient is feeling better. Bone scan is positive for osteomyelitis . She is on antibiotic. Continue to be seen by Podiatry and ID. PHYSICAL EXAMINATION: VITAL SIGNS: Blood pressure 146/85, pulse 62, respiratory rate 20, temperature 97.8. LUNGS: Clear. No rales. No rhonchi. CARDIOVASCULAR SYSTEM: PMI not localized. S1 and S2, regular. ABDOMEN: Soft, nontender. Bowel sounds are positive. ASSESSMENT: 1. Osteomyelitis of the feet. 2. Type 2 diabetes, poorly controlled. 3. Substance abuse. 4. Morbid obesity. PLAN: Accu-Chek, sliding scale, antibiotics, and detox. ID consult. Monitor the patient. Cyrus Streeter MD
[2018-08-12] MEDS: (Novolog) Insulin Aspart, Recombinant 100 u/ml 10 ml vial SC SCH ×2 (07:54→12:05)
[2018-08-12 09:05] VITALS: BP 126/81; PULSE 60; TEMP 98.1; O2SAT 96
[2018-08-12] MEDS: Enoxaparin 40 mg Syringe SC SCH (10:08)
--- NOTE | 2018-08-12 12:05 | CP.PCM.CON ---
History of Present Illness - History of Present Illness History of Present Illness: INFECTIOUS DISEASE CONSULT; REASON FOR CONSULT; DIABETIC FOOT INFECTION/OSTEOMYELITIS HPI; 53-year-old female with multiple medical problems including diabetes mellitus COPD, bipolar disorder, asthma arthritis, hypertension, chronic pain and gout admitted by the emergency room because of increasing pain to the right foot with a nonhealing wound that has been there for over 1 year. Patient also notices drainage from the wound was 6 months and states she treated herself with soap and water. Patient also had a fracture of the left foot third distal metatarsal which is being presently treated conservatively. Patient is homeless and states she could not take care or follow up with the clinic or doctors. PATIENT DENIES ANY FEVER OR CHILLS. INFECTIOUS DISEASE CONSULT REQUESTED BY PMD FOR OSTEOMYELITIS OF THE RIGHT FOOT. PMH: Anxiety, Arthritis, Asthma, Bipolar Disorder, COPD, Diabetes, Diverticulitis, HTN, Chronic Pain and gout PSH: Cholecystectomy, Tonsillectomy. Allergies: Benzodiazepines, Diphenhydramine HCL, Ciprofloxacin. Social Hx: Smoker 2 ppd, Use EtOH excessively (Alcoholic), Use Crack Cocaine. - Immunization History Hx Tetanus Toxoid Vaccination: No Hx Influenza Vaccination: No Hx Pneumococcal Vaccination: No Review of Systems - Constitutional Constitutional: absent: Chills, Fever - EENT Eyes: absent: Change in Vision Nose/Mouth/Throat: absent: Mouth Lesions - Cardiovascular Cardiovascular: Pedal Edema. absent: Chest Pain - Gastrointestinal Gastrointestinal: absent: Abdominal Pain, Loose Stools, Nausea, Vomiting - Genitourinary Genitourinary: absent: Dysuria - Integumentary Integumentary: Skin Ulcer (RT FOOT) - Hematologic/Lymphatic Hematologic: As Per HPI. absent: Easy Bleeding, Easy Bruising, Lymphadenopathy Past Patient History - Infectious Disease Hx of Infectious Diseases: None - Tetanus Immunizations Tetanus Immunization: Unknown - Past Medical History & Family History Past Medical History?: Yes - Past Social History Smoking Status: Current Some Days Smoker - CARDIAC Hx Hypertension: Yes - PULMONARY Hx Asthma: Yes Hx Chronic Obstructive Pulmonary Disease (COPD): Yes - NEUROLOGICAL Hx Neurological Disorder: No - HEENT Hx HEENT Problems: Yes Hx Deafness: Yes - RENAL Hx Chronic Kidney Disease: No - ENDOCRINE/METABOLIC Hx Endocrine Disorders: Yes Hx Diabetes Mellitus Type 2: Yes - HEMATOLOGICAL/ONCOLOGICAL Hx Blood Disorders: No - INTEGUMENTARY Hx Dermatological Problems: No - MUSCULOSKELETAL/RHEUMATOLOGICAL Hx Arthritis: Yes Hx Falls: Yes - GASTROINTESTINAL Hx Diverticulitis: Yes - GENITOURINARY/GYNECOLOGICAL Hx Genitourinary Disorders: Yes Hx Urinary Tract Infection: Yes Other/Comment: PROLASE OF UTERUS - PSYCHIATRIC Hx Anxiety: Yes Hx Bipolar Disorder: Yes Hx Substance Use: Yes (crack cocaine last used 08/09) - SURGICAL HISTORY Hx Cholecystectomy: Yes Hx Tonsillectomy: Yes - ANESTHESIA Hx Anesthesia: Yes Hx Anesthesia Reactions: No Hx Malignant Hyperthermia: No Has any member of the family had a problem w/ anesthesia?: No Meds Allergies/Adverse Reactions: Allergies Allergy/AdvReac Type Severity Reaction Status Date / Time diphenhydramine HCl Allergy Severe RASH Verified 08/10/18 11:14 [From Benadryl] ciprofloxacin HCl Allergy RASH Verified 08/10/18 11:14 [From Cipro] trazadone Allergy Severe ANAPHYLAXIS Uncoded 08/10/18 11:14 - Medications Medications: Current Medications Enoxaparin Sodium (Lovenox) 40 mg SC DAILY [facility] Last Admin: 08/12/18 10:08 Dose: 40 mg Vancomycin/Sodium Chloride (Vancomycin 1 Gm/Ns 200 Ml) 1 gm in 200 mls @ 133 mls/hr IVPB Q12H [facility]; Protocol Stop: 08/16/18 03:01 Last Admin: 08/12/18 02:00 Dose: 133 mls/hr Piperacillin Sod/Tazobactam Sod (Zosyn 3.375 Gm Iv Premix) 3.375 gm in 50 mls @ 100 mls/hr IVPB Q6H [facility]; Protocol Last Admin: 08/12/18 06:15 Dose: 100 mls/hr Influenza Virus Vaccine (Flucelvax Quad [id number] Syr) 60 mcg IM .ONCE ONE Stop: 08/13/18 10:01 Insulin Aspart (Novolog) 0 unit SC ACHS [facility]; Protocol Last Admin: 08/12/18 07:54 Dose: Not Given Metformin HCl (Glucophage) 500 mg PO BID [facility] Last Admin: 08/12/18 10:08 Dose: 500 mg Oxycodone/Acetaminophen (Percocet 5/325 Mg Tab) 1 tab PO Q4H PRN PRN Reason: Pain, moderate (4-7) Stop: 08/13/18 19:16 Last Admin: 08/12/18 07:19 Dose: 1 tab Pneumococcal Polyvalent Vaccine (Pneumovax 23 Vaccine) 0.5 ml IM .ONCE ONE Stop: 08/13/18 10:01 Rosuvastatin Calcium (Crestor) 10 mg PO HS [facility] Last Admin: 08/11/18 21:04 Dose: 10 mg Zolpidem Tartrate (Ambien) 5 mg PO HS PRN PRN Reason: Insomnia Last Admin: 08/11/18 21:04 Dose: 5 mg Physical Exam - Constitutional Appears: No Acute Distress - Head Exam Head Exam: NORMAL INSPECTION - Eye Exam Eye Exam: EOMI, PERRL - ENT Exam ENT Exam: Normal Oropharynx - Neck Exam Neck exam: Positive for: Normal Inspection - Respiratory Exam Respiratory Exam: Clear to Auscultation Bilateral, NORMAL BREATHING PATTERN - Cardiovascular Exam Cardiovascular Exam: REGULAR RHYTHM, +S1, +S2 - GI/Abdominal Exam GI & Abdominal Exam: Normal Bowel Sounds, Soft. absent: Tenderness - Extremities Exam Extremities exam: Positive for: pedal edema. Negative for: calf tenderness Additional comments: RIGHT LOWER EXTREMITY: ulceration noted to plantar aspect of the hallux measuring approximately 1 cm x 1 cm x .3 cm and probes to bone. Malodorous DRAINAGE. LEFT LOWER EXTREMITY superficial abrasions noted to the dorsum aspect of hallux and 2nd digit secondary to pressure from cast with WB. No drainage, no odor, no purulence, no abscess - Neurological Exam Neurological exam: Alert, CN II-XII Intact, Oriented x3 - Skin Skin Exam: Normal Color, Warm Results - Vital Signs Recent Vital Signs: Last Vital Signs Temp 98.1 F 08/12/18 08:00 Pulse 60 08/12/18 08:00 Resp 20 08/12/18 08:00 BP 126/81 08/12/18 08:00 Pulse Ox 96 08/12/18 08:00 - Labs Result Diagrams: 08/10/18 13:05 08/10/18 13:05 Labs: Laboratory Results - last 24 hr 08/11/18 08/11/18 08/12/18 16:33 20:51 07:15 POC Glucose (mg/dL) 149 H 172 H 134 H 08/12/18 11:44 POC Glucose (mg/dL) 158 H - Imaging and Cardiology THREE-PHASE BONE SCAN RIGHT FOOT. Status: Report reviewed by me (OSTEOMYELITIS FIRST DIGIT RIGHT FOOT. SEE FULL REPORT.) Assessment & Plan (1) Osteomyelitis of toe of right foot Status: Acute (2) Fracture of metatarsal of left foot, closed Status: Acute (3) Diabetes Status: Chronic (4) HTN (hypertension) Status: Chronic (5) Cocaine abuse Status: Acute (6) Anxiety Status: Acute - Assessment and Plan (Free Text) Plan: PLAN; ESR CRP. WOUND CULTURE RT.FOOT. CONTINUE iv zOSYN 3.375 IVPB Q -6 HOURLY.08/11/18 CONTINUE iv VANCOMYCIN 1 G EVERY 12 HOURLY 08/11/18. F/U CULTURES TO ADJUST ANTIBIOTICS LWC PER PODIATRY.
--- NOTE | 2018-08-12 13:32 | CP.PCM.PN ---
Subjective - Date & Time of Evaluation Date of Evaluation: 08/12/18 Time of Evaluation: 11:00 - Subjective Subjective: Podiatry Progress Note- Dr. Lorenz 53F PMH of Anxiety, Arthritis, Asthma, Bipolar Disorder, COPD, Diabetes, Diverticulitis, HTN, Chronic Pain and gout seen for left foot 3rd distal metatarsal fracture being treated conservatively and right hallux ulcer with positive OM. Patient is seen walking in room upon visitation on both foot. Pat dwaynent reports she has been putting weight to the left foot. Patient denies of pain to the left foot. Patient reports some pain to right foot. Patient denies nausea, fever, shortness of breath, chest pains or chills. 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 Reports will return. Also mentions that daughter will move into an apartment on August 23 and patient will be able to take care of herself better. Reports will make it to podiatry clinic appointment and follow up appointments. Objective - Vital Signs/Intake and Output Vital Signs (last 24 hours): Temp Pulse Resp BP Pulse Ox 98.1 F 60 20 126/81 96 08/12/18 08:00 08/12/18 08:00 08/12/18 08:00 08/12/18 08:00 08/12/18 08:00 Intake and Output: 08/12/18 08/12/18 06:59 18:59 Intake Total 550 1000 Balance 550 1000 - Labs Labs: 08/10/18 13:05 08/10/18 13:05 - Constitutional Appears: Well, Non-toxic, No Acute Distress - Extremities Exam Extremities Exam: absent: Calf Tenderness Additional comments: B/L LE Focused exam: Vasc: DP/PT 2/4 b/l, Cap refill < 3 sec to all digits. Temperature gradient warm to warm b/l. Moderate nonpitting edema noted to left foot and right hallux Neuro: Gross and protective sensations are intact bilaterally Derm: LEFT LOWER EXTREMITY superficial abrasions noted to the dorsum aspect of hallux and 2nd digit secondary to pressure from cast with WB. No drainage, no odor, no purulence, no abscess RIGHT LOWER EXTREMITY: ulceration noted to plantar aspect of the hallux measuring approximately 1 cm x 1 cm x .3 cm and probes to bone. Malodorous. No active drainage or purulence expressed during examination, no abscess, no tunneling or undermining appreciated. Slight erythema noted. Periwound and wound borders are intact and hyperkeratotic. Skin is dry and callused. MSK: Muscle power intact 5/5 to all groups: dorsiflexion, plantarflexion, inversion and eversion. Pain to palpation on the 3rd metatarsal distally left foot. Pain with palpation of the right hallux. Able to wiggle toes. - Neurological Exam Neurological Exam: Alert, Awake, Oriented x3 - Psychiatric Exam Psychiatric exam: Normal Affect, Normal Mood Assessment and Plan - Assessment and Plan (Free Text) Assessment: 53F PMH of Anxiety, Arthritis, Asthma, Bipolar Disorder, COPD, Diabetes, Diverticulitis, HTN, Chronic Pain and gout with 1) left foot 3rd distal metatars al fracture secondary to trauma being treated conservatively with delayed healing noted 2) left foot non infected superficial abrasions secondary to pressure from cast 3) infected right hallux wound with positive osteomyelitis secondary to pressure and DM Plan: Patient seen and examined Discussed plan in detail with attending Dr. Lorenz Labs, vitals, chart reviewed X-rays bilateral foot reviewed- left foot distal 3rd metatarsal fracture with callus formation noted, right foot with 1st distal hallux ulceration and likely underlying OM Patient to continue to NWB to the left lower extremity with the use of walker Buenrostro compression on and intact Patient has been noncompliant and has been ambulating in Buenrostro Compression. Dispense surgical shoe to patient. Explained to patient the importance of nonweight bearing and using walker to get around and patient understands Patient may WBAT to right LE Please dispense surgical shoe for right foot Patient do not need MRI for foot at this time. Bone scan ordered- OM of right hallux ID consulted, recommendations appreciated Wound culture taken of right hallux Cleansed ulceration with betadine, and applied dsd Will continue to follow patient while on floors Discussed with patient regarding treatment plans including risks, benefits, complications and alternatives. Patient opts for surgical intervention of right hallux amputation. Podiatry plants to bring patient to the OR tomorrow for amputation of right hallux pending medication clearance.
--- NOTE | 2018-08-12 21:54 | CP.PCM.DIS ---
Provider - Provider Date of Admission: 08/11/18 20:23 Attending physician: Cyrus Streeter MD Consults: 08/10/18 18:01 Podiatry Consult Routine Comment: Consulting Provider: Daniel Diamond Consulting Physician: Daniel Diamond Reason for Consult: osteomyelitis 08/11/18 18:02 Infectious Disease Consult Routine Comment: Consulting Provider: Marcial Mulligan Consulting Physician: Marcial Mulligan Reason for Consult: acute osteomyelitis in the 1st digit right foot Time Spent in preparation of Discharge (in minutes): 30 Hospital Course - Lab Results Lab Results: Micro Results 08/12/18 11:57 Foot - Right Gram Stain - Final 08/10/18 12:30 Blood Blood Culture - Preliminary NO GROWTH AFTER 48 HOURS 08/10/18 13:00 Blood Blood Culture - Preliminary NO GROWTH AFTER 48 HOURS Most Recent Lab Values WBC 9.7 K/uL (4.8-10.8) 08/10/18 13:05 RBC 4.36 Mil/uL (3.80-5.20) 08/10/18 13:05 Hgb 13.9 g/dL (11.0-16.0) 08/10/18 13:05 Hct 41.0 % (34.0-47.0) 08/10/18 13:05 MCV 94.0 fL (81.0-99.0) 08/10/18 13:05 MCH 31.9 pg (27.0-31.0) H 08/10/18 13:05 MCHC 33.9 g/dL (33.0-37.0) 08/10/18 13:05 RDW 14.2 % (11.5-14.5) 08/10/18 13:05 Plt Count 344 K/uL (130-400) 08/10/18 13:05 MPV 8.1 fL (7.2-11.7) 08/10/18 13:05 Neut % (Auto) 64.0 % (50.0-75.0) 08/10/18 13:05 Lymph % (Auto) 27.6 % (20.0-40.0) 08/10/18 13:05 [place] % (Auto) 6.4 % (0.0-10.0) 08/10/18 13:05 Eos % (Auto) 1.8 % (0.0-4.0) 08/10/18 13:05 Baso % (Auto) 0.2 % (0.0-2.0) 08/10/18 13:05 Neut # (Auto) 6.2 K/uL (1.8-7.0) 08/10/18 13:05 Lymph # (Auto) 2.7 K/uL (1.0-4.3) 08/10/18 13:05 [place] # (Auto) 0.6 K/uL (0.0-0.8) 08/10/18 13:05 Eos # (Auto) 0.2 K/uL (0.0-0.7) 08/10/18 13:05 Baso # (Auto) 0.0 K/uL (0.0-0.2) 08/10/18 13:05 Sodium 139 mmol/L (132-148) 08/10/18 13:05 Potassium 3.8 mmol/L (3.6-5.2) 08/10/18 13:05 Chloride 104 mmol/L (98-107) 08/10/18 13:05 Carbon Dioxide 28 mmol/L (22-30) 08/10/18 13:05 Anion Gap 11 (10-20) 08/10/18 13:05 BUN 11 mg/dL (7-17) 08/10/18 13:05 Creatinine 0.8 mg/dL (0.7-1.2) 08/10/18 13:05 Est GFR ( Amer) > 60 08/10/18 13:05 Est GFR (Non-Af Amer) > 60 08/10/18 13:05 POC Glucose (mg/dL) 158 mg/dL (65-110) H 08/12/18 11:44 Random Glucose 138 mg/dL (65-105) H 08/10/18 13:05 Calcium 8.9 mg/dl (8.6-10.4) 08/10/18 13:05 Total Bilirubin 0.2 mg/dL (0.2-1.3) 08/10/18 13:05 AST 16 U/L (14-36) 08/10/18 13:05 ALT 13 U/L (9-52) 08/10/18 13:05 Alkaline Phosphatase 100 U/L (38-126) 08/10/18 13:05 Total Protein 6.7 g/dL (6.3-8.3) 08/10/18 13:05 Albumin 3.8 g/dL (3.5-5.0) 08/10/18 13:05 Globulin 2.9 gm/dL (2.2-3.9) 08/10/18 13:05 Albumin/Globulin Ratio 1.3 (1.0-2.1) 08/10/18 13:05 Urine HCG, Qual Negative (NEGATIVE) 08/11/18 09:22 Urine Opiates Screen Negative (NEGATIVE) 08/10/18 15:49 Urine Methadone Screen Negative (NEGATIVE) 08/10/18 15:49 Ur Barbiturates Screen Negative (NEGATIVE) 08/10/18 15:49 Ur Phencyclidine Scrn Negative (NEGATIVE) 08/10/18 15:49 Ur Amphetamines Screen Negative (NEGATIVE) 08/10/18 15:49 U Benzodiazepines Scrn Negative (NEGATIVE) 08/10/18 15:49 U Oth Cocaine Metabols Positive (NEGATIVE) H 08/10/18 15:49 U Cannabinoids Screen Negative (NEGATIVE) 08/10/18 15:49 Discharge Exam - Head Exam Head Exam: NORMAL INSPECTION Discharge Plan - Follow Up Plan Condition: GOOD Disposition: AGAINST MEDICAL ADVICE
--- NOTE | 2018-08-13 05:31 | DS ---
DISCHARGE DIAGNOSES: 1. Osteomyelitis of the foot. 2. Diabetic foot ulcer. 3. Type 2 diabetes. 4. Hypertension. 5. Morbid obesity. 6. Polysubstance abuse. HISTORY OF PRESENT ILLNESS AND HOSPITAL COURSE: This is a 53-year-old female with history of bilateral foot ulcers after she had a cast removed, found to have osteomyelitis. The patient needed ID evaluation, Podiatry, IV antibiotics, and long-term wound care. The patient also had history of substance abuse. Urine drug screen was positive. While treatment was in progress, the patient was improving, the wounds were improving, the patient signed out against medical advice. PHYSICAL EXAMINATION: GENERAL: The patient awake, alert, oriented x3. VITAL SIGNS: Blood pressure 126/81, pulse 60, respiratory rate 20, temperature 98.1. LUNGS: Clear. CARDIOVASCULAR SYSTEM: S1 and S2, regular. ABDOMEN: Soft. PLAN: The patient signed out AMA. Cyrus Streeter MD
[2018-08-13] MEDS ORDERED: Influenza Vaccine 60 mcg/0.5 mL SYR (4YR UP) IM ONE (10:00)
[2018-08-13] MEDS ORDERED: Pneumococcal 23-Valent Vaccine IM ONE (10:00)
== END 2018-08-12 12:10 | disposition left against medical advice (07) | DRG 294 ==
LOC: C.ER 11:02 → C.9E 15:45 → C.3T 18:29 → OBSVTOIN 08-11 20:23
PROVIDERS: ADMIT Internal Medicine; ATTEND Internal Medicine
DX: E11.69 Type 2 diabetes mellitus with other specified complication (principal); L97.529 Non-pressure chronic ulcer of other part of left foot with unspecified severity; F14.10 Cocaine abuse, uncomplicated; J44.9 Chronic obstructive pulmonary disease, unspecified; M86.9 Osteomyelitis, unspecified; E11.621 Type 2 diabetes mellitus with foot ulcer; E11.65 Type 2 diabetes mellitus with hyperglycemia; E66.01 Morbid (severe) obesity due to excess calories; F17.210 Nicotine dependence, cigarettes, uncomplicated; I10 Essential (primary) hypertension; M10.9 Gout, unspecified; Z59.0 Homelessness; F41.9 Anxiety disorder, unspecified

== ENCOUNTER 2018-09-10 09:29 | Outpatient (CLI) | payer MEDICAID | END 2018-09-10 09:30 | disposition home or self-care (01) | LOC: C.RADH 09:29 | DX: M86.20 Subacute osteomyelitis, unspecified site (principal) ==